=== PATIENT | male | born 1965 | race Caucasian/White ===

== ENCOUNTER 2019-01-20 20:23 | Inpatient (IN) | payer MEDICARE ==
[~2019-01-20] VITALS: Ht 162.6 cm; Wt 63.5 kg
[2019-01-20 20:20] VITALS: BP 115/61
[2019-01-20] MEDS ORDERED: TRAZ-214 (20:45)
[2019-01-20] MEDS ORDERED: IBUP-1955 (20:45)
[2019-01-20] MEDS ORDERED: BUPR100T7 (20:45)
[2019-01-20] MEDS ORDERED: NICO-676 (20:45)
[2019-01-20] MEDS ORDERED: GABA-534 (20:45)
[2019-01-20] MEDS ORDERED: OLAN15TA3 (20:45)
[2019-01-20] MEDS ORDERED: PARO30TA4 (20:45)
[2019-01-20] MEDS ORDERED: BLOOD SUGAR DIAGNOSTIC 1 EACH STRIP IN ONE (21:30)
[2019-01-20] MEDS ORDERED: MAGNESIUM HYDROXIDE 30 ML UDC PO PRN (21:30)
[2019-01-20] MEDS ORDERED: ACETAMINOPHEN 325 MG TABLET PO PRN (21:30)
[2019-01-20] MEDS ORDERED: MAG HYDROX/AL HYDROX/SIMETH 30 ML UDC PO PRN (21:30)
[2019-01-20] MEDS ORDERED: AMOX875T2 PO (21:44)
[2019-01-20] MEDS ORDERED: CEPH-570 PO (21:44)
[2019-01-20 23:09] VITALS: BP 115/66
--- NOTE | 2019-01-20 23:35 | NUR ---
ADMISSION NOTES: ADMITTED THIS 53Y/O MALE PATIENT DIRECT ADMIT FROM [facility] , PT ADMITTED ON VOLUNTARY STATUS ,THOUGHT OF HARMING HIMSELF , PLANS OF CUTTING HIS WRIST AT [facility] , UPON FACE TO FACE ASSESSMENT PATIENT IS A&O X ,4 CALM , COOPERATIVE, RESPONDING TO INTERNAL STIMULI ,DENIES SI HI AT THIS TIME , PER PT. I AM FEELING DEPRESSED, PT. IS POOR HISTORIAN, POOR INSIGHT ,POOR JUDGEMENT , POOR HYGINE ,PT. SIGNS VOLUNTARY ADMISSION PAPERS ,PT. REFUSED SKIN ASSESSMENT , PER PT. MY SKIN IS INTACT, AND REFUSED PICTURES, PT. REFUSED INTAILLY ACCU CHECK , PER PT. I AM NOT DIABETIC, PT. V/S MD ANIYAH AWARE AND NOTIFIED OF THE ADMISSION, BELONGINGS CONTRABAND WERE DONE , NURSING ASSESSMENT DONE ,PT. RIGHTS DISCUSS BY CARGO AND CONTAINER INSPECTOR , PROVIDE THE PT. WITH HANDBOOK, AND MEDICATIONS GUIDE, ENVIRONMENTAL SAFETY CHECK DONE, ENCOURAGED PT. VERBALIZED ANY FEELING CONCERN TO STAFF, ORIENT TO UNIT POLICY, NO ACUTE DISTRESS NOTED,VITAL SIGNS WNL ,DENIES ANY PAIN AT THIS TIME ,WILL CONTINUE TO MONITOR FOR Q15 SAFETY AND BEHAVIOR.
[2019-01-21] MEDS ORDERED: CEPHALEXIN MONOHYDRATE 250 MG CAPSULE PO SCH
[2019-01-21] MEDS ORDERED: CEPHALEXIN MONOHYDRATE 250 MG CAPSULE PO ONE
--- NOTE | 2019-01-21 06:50 | NUR ---
GPS RN NOTES: PT. NONE GIVEN NEXT OF KIN, PER PT.I LIVE BYMYSELF .
[2019-01-21 07:24] LABS: ALBUMIN 3.4 g/dL (3.4-5.0); BILIRUBIN,TOTAL 0.2 mg/dL (0.2-1.0); CALCIUM, SERUM 8.7 mg/dL (8.5-10.1); CREATININE 0.7 mg/dL (0.6-1.3); POTASSIUM 4.3 mmol/L (3.5-5.1); TOTAL PROTEIN, SERUM 6.8 g/dL (6.4-8.2)
[2019-01-21 08:00] VITALS: BP 109/65
[2019-01-21] MEDS: NICOTINE PATCH (21MG) 21 MG PATCH.TD24 TD SCH (08:48)
[2019-01-21] MEDS: AMOX/CLAVULANATE 875 MG TABLET PO SCH ×2 (08:48→20:39)
[2019-01-21] MEDS: CEPHALEXIN MONOHYDRATE 250 MG CAPSULE PO SCH ×2 (08:48→20:40)
[2019-01-21] MEDS ORDERED: TRAZODONE 50 MG TABLET PO PRN (10:00)
[2019-01-21] MEDS: clonazePAM 0.5 MG TABLET PO PRN ×2 (10:08→14:59)
[2019-01-21] MEDS: BUPROPION XL 150 MG TAB.ER.24 PO SCH (11:37)
[2019-01-21] MEDS: GABAPENTIN 300 MG CAPSULE PO SCH ×3 (11:37→16:37)
[2019-01-21] MEDS: PAROXETINE HCL 20 MG TABLET PO SCH (11:38)
--- NOTE | 2019-01-21 14:25 | NUR ---
Initial Discharge Plan: Pt is currently homeless and stated that he needs placement. SW will work with the MD and the pt regarding appropriate discharge planning. SW will form a safe and proper discharge.
--- NOTE | 2019-01-21 15:00 | NUR ---
GROUP NOTE: SW prompted pt to participate in group session on this present day discussing "current issues you are having while being on a hold." Pt refused to attend stating he wanted to sty in his room. Pt is withdrawn and isolating.
[2019-01-21 16:00] VITALS: BP 121/67
[2019-01-21 19:50] VITALS: BP 105/64
[2019-01-21] MEDS: OLANZAPINE 10 MG TABLET PO SCH (21:06)
[2019-01-22] MEDS: BUPROPION XL 150 MG TAB.ER.24 PO SCH (08:12)
[2019-01-22] MEDS: AMOX/CLAVULANATE 875 MG TABLET PO SCH ×2 (08:12→20:44)
[2019-01-22] MEDS: GABAPENTIN 300 MG CAPSULE PO SCH ×3 (08:12→16:10)
[2019-01-22] MEDS: CEPHALEXIN MONOHYDRATE 250 MG CAPSULE PO SCH ×2 (08:12→20:45)
[2019-01-22] MEDS: NICOTINE PATCH (21MG) 21 MG PATCH.TD24 TD SCH ×2 (08:12→09:00)
[2019-01-22] MEDS: PAROXETINE HCL 20 MG TABLET PO SCH (08:18)
[2019-01-22 09:14] VITALS: BP 98/53
[2019-01-22] MEDS: clonazePAM 0.5 MG TABLET PO PRN ×2 (09:55→14:55)
--- NOTE | 2019-01-22 10:24 | NUR ---
SW conducted a substance abuse intervention with the pt regarding his methamphetamine use.
[2019-01-22 16:00] VITALS: BP 113/67
[2019-01-22] MEDS: LACTOBACILLUS RHAMNOSUS GG 1 EACH CAP.SPRINK PO SCH (16:10)
--- NOTE | 2019-01-22 16:24 | NUR ---
Group Note: Pt was encouraged to participate in group therapy discussing the topic of discharge planning. Pt stated that he preferred to stay in his room and discuss discharge with his SW one on one.
[2019-01-22 20:20] VITALS: BP 100/60
[2019-01-22] MEDS: OLANZAPINE 10 MG TABLET PO SCH (21:27)
[2019-01-23 08:00] VITALS: BP 110/72
--- NOTE | 2019-01-23 09:13 | NUR ---
EMILY faxed a referral to [facility] with attention to Yuri to the fax number: [phone].
[2019-01-23] MEDS: PAROXETINE HCL 20 MG TABLET PO SCH (10:09)
[2019-01-23] MEDS: AMOX/CLAVULANATE 875 MG TABLET PO SCH ×2 (10:09→21:13)
[2019-01-23] MEDS: LACTOBACILLUS RHAMNOSUS GG 1 EACH CAP.SPRINK PO SCH ×2 (10:09→17:39)
[2019-01-23] MEDS: BUPROPION XL 150 MG TAB.ER.24 PO SCH (10:10)
[2019-01-23] MEDS: CEPHALEXIN MONOHYDRATE 250 MG CAPSULE PO SCH ×2 (10:10→21:13)
[2019-01-23] MEDS: NICOTINE PATCH (21MG) 21 MG PATCH.TD24 TD SCH (10:10)
[2019-01-23] MEDS: GABAPENTIN 300 MG CAPSULE PO SCH ×3 (10:10→17:39)
--- NOTE | 2019-01-23 10:50 | NUR ---
Randell ([phone]) from [facility] called the SW and informed her that the pt is not accepted to their facility due to his substance abuse and due to his ambulation meaning that there is no need for physical therapy.
[2019-01-23] MEDS: clonazePAM 0.5 MG TABLET PO PRN ×2 (10:59→15:36)
--- NOTE | 2019-01-23 11:00 | NUR ---
MEDICATED FOR NERVOUSNESS WITH CLONOPIN.
--- NOTE | 2019-01-23 15:44 | NUR ---
MEDICATED FOR NERVES WITH CLONOPIN.
[2019-01-23 16:02] VITALS: BP 110/73
--- NOTE | 2019-01-23 16:22 | NUR ---
GROUP NOTE: SW prompted pt to participate in group session on this present day discussing "medication compliance." Pt refused to attend stating he wanted to stay in his room.
--- NOTE | 2019-01-23 18:29 | NUR ---
GIVEN TYLENOL 650 MG FOR LT. ELBOW PAIN.
[2019-01-23 20:23] VITALS: BP 104/57
[2019-01-23] MEDS: OLANZAPINE 10 MG TABLET PO SCH (21:14)
[2019-01-24 08:00] VITALS: BP 107/62
[2019-01-24] MEDS: GABAPENTIN 300 MG CAPSULE PO SCH ×3 (08:00→16:14)
[2019-01-24] MEDS: CEPHALEXIN MONOHYDRATE 250 MG CAPSULE PO SCH ×2 (08:00→22:14)
[2019-01-24] MEDS: BUPROPION XL 150 MG TAB.ER.24 PO SCH (08:00)
[2019-01-24] MEDS: LACTOBACILLUS RHAMNOSUS GG 1 EACH CAP.SPRINK PO SCH ×2 (08:00→16:14)
[2019-01-24] MEDS: PAROXETINE HCL 20 MG TABLET PO SCH (08:00)
[2019-01-24] MEDS: AMOX/CLAVULANATE 875 MG TABLET PO SCH ×2 (08:01→22:14)
[2019-01-24] MEDS: NICOTINE PATCH (21MG) 21 MG PATCH.TD24 TD SCH (08:01)
[2019-01-24] MEDS: IBUPROFEN 600 MG TABLET PO PRN ×2 (09:09→16:14)
[2019-01-24] MEDS: clonazePAM 0.5 MG TABLET PO PRN ×3 (09:09→18:50)
--- NOTE | 2019-01-24 09:48 | NUR ---
EMILY faxed a referral to [facility] with attention to Padilla to the fax number: [phone].
--- NOTE | 2019-01-24 10:59 | NUR ---
Seble ([phone]) from [facility] called the SW and stated that the pt cannot be accepted due to his drug use and suicidal ideation.
--- NOTE | 2019-01-24 11:05 | NUR ---
EMILY faxed a referral to [facility] with attention to Amari to the fax number: [phone].
--- NOTE | 2019-01-24 13:03 | NUR ---
Juan ([phone]) from [facility] contacted the and stated that the pt was accepted to their facility.
--- NOTE | 2019-01-24 15:56 | NUR ---
Group Note: SW encouraged the pt to attend group and he stated that he was busy making some phone calls and could not make it at this time.
[2019-01-24 16:00] VITALS: BP 117/71
[2019-01-24 20:00] VITALS: BP 100/56
[2019-01-24] MEDS: OLANZAPINE 10 MG TABLET PO SCH (22:14)
[2019-01-24] MEDS: TEMAZEPAM 7.5 MG CAPSULE PO PRN ×2 (22:15→22:17)
[2019-01-25 08:00] VITALS: BP 107/61
[2019-01-25] MEDS: LACTOBACILLUS RHAMNOSUS GG 1 EACH CAP.SPRINK PO SCH ×2 (08:13→16:12)
[2019-01-25] MEDS: AMOX/CLAVULANATE 875 MG TABLET PO SCH ×2 (08:13→21:43)
[2019-01-25] MEDS: GABAPENTIN 300 MG CAPSULE PO SCH ×3 (08:13→16:12)
[2019-01-25] MEDS: CEPHALEXIN MONOHYDRATE 250 MG CAPSULE PO SCH ×2 (08:13→21:43)
[2019-01-25] MEDS: BUPROPION XL 150 MG TAB.ER.24 PO SCH (08:13)
[2019-01-25] MEDS: clonazePAM 0.5 MG TABLET PO PRN ×2 (08:27→13:30)
[2019-01-25] MEDS: IBUPROFEN 600 MG TABLET PO PRN ×2 (08:27→16:12)
[2019-01-25] MEDS: PAROXETINE HCL 20 MG TABLET PO SCH (08:27)
--- NOTE | 2019-01-25 08:28 | NUR ---
gps rn note: pt feeling anxious Clonazepam o.5 mg po prn given will continue monitoring
[2019-01-25] MEDS: NICOTINE PATCH (21MG) 21 MG PATCH.TD24 TD SCH (08:32)
--- NOTE | 2019-01-25 10:48 | NUR ---
EMILY faxed a clearance to [facility] with attention to Jessica to the fax number: [phone].
--- NOTE | 2019-01-25 13:30 | NUR ---
GPS RN NOTE: PT REQUESTING KLONOPIN FEELING ANXIOUS , KLONOPIN 0.5 MG PO PRN GIVEN PER ORDER WILL CONTINUE MONITORING.
--- NOTE | 2019-01-25 14:56 | NUR ---
Group Note: SW prompted the pt to participate in group therapy but pt stated he wanted to stay in his room due to feeling tired and wanting to sleep.
[2019-01-25 16:00] VITALS: BP 112/65
[2019-01-25 20:00] VITALS: BP 106/67
[2019-01-25] MEDS: TEMAZEPAM 7.5 MG CAPSULE PO PRN (21:43)
[2019-01-25] MEDS: OLANZAPINE 10 MG TABLET PO SCH (21:43)
[2019-01-26 08:00] VITALS: BP 119/71
[2019-01-26] MEDS: AMOX/CLAVULANATE 875 MG TABLET PO SCH (08:01)
[2019-01-26] MEDS: BUPROPION XL 150 MG TAB.ER.24 PO SCH (08:01)
[2019-01-26] MEDS: LACTOBACILLUS RHAMNOSUS GG 1 EACH CAP.SPRINK PO SCH (08:01)
[2019-01-26] MEDS: GABAPENTIN 300 MG CAPSULE PO SCH ×2 (08:02→12:18)
[2019-01-26] MEDS: PAROXETINE HCL 20 MG TABLET PO SCH (08:02)
[2019-01-26] MEDS: CEPHALEXIN MONOHYDRATE 250 MG CAPSULE PO SCH (08:02)
[2019-01-26] MEDS: NICOTINE PATCH (21MG) 21 MG PATCH.TD24 TD SCH (08:06)
[2019-01-26] MEDS: IBUPROFEN 600 MG TABLET PO PRN (08:10)
[2019-01-26] MEDS: clonazePAM 0.5 MG TABLET PO PRN (08:10)
--- NOTE | 2019-01-26 08:20 | NUR ---
DR. HERNANDEZ GAVE AN ORDER TO D/C PT. TO [facility], TO CONTINUE SAME MEDS INCLUDING PRN AND TO FOLLOW UP WITH PSYCH AND MEDICAL DOCTORS. CALLED THE FACILITY AND SPOKE TO MAXWELL AND AND SAID THEY ARE ACCEPTING PT. TODAY. PER. PT. HE DOESN'T HAVE ANY TO NOTIFY FOR HIS DISCHARGE.
--- NOTE | 2019-01-26 14:08 | NUR ---
PATIENT WAS DISCHARGED TODAY AT 1350 TO [facility] ([facility]) LOCATED AT [address] [place] [address] VIA AMBULANCE. PATIENT IS A&AX4, CALM, COOPERATIVE, PLEASANT, IN STABLE CONDITION. VSS. NO ACUTE DISTRESS NOTED. NO COMPLAINTS OF PAIN OR ANY DISCOMFORT. COMPLIANT WITH MEDICATION MANAGEMENT. COOPERATIVE WITH PLAN OF CARE. PSYCHIATRIC TREATMENT PLANS MET. MEDICAL TREATMENT PLANS DEFERRED FOR CONTINUAL MONITORING. DENIES SI/HI/AVH AT THE TIME OF DISCHARGE. PT REFUSED SKIN ASSESSMENT AND PHOTOS TO BE TAKEN AT DISCHARGE. EDUCATED PATIENT ABOUT AFTERCARE WITH COPY PROVIDED. RETURNED PERSONAL BELONGINGS TO PATIENT. MEDICATIONS RECONCILED WITH DR. HERNANDEZ AND DR. MIRELES ALONG WITH PSYCHIATRIC DISCHARGE ORDERS. DISCHARGE PAPERWORK SIGNED. FOR FOLLOW UP WITH PSYCHIATRIST AND DATA EXAMINATION CLERK AT WITHIN 1 WEEK. PATIENT LEFT THE [facility] AT 1350 VIA AMBULANCE. REPORT WAS GIVEN TO SAGAR ARREOLA AT AND PROGRESS NOTE WAS FAXED TO [phone].
--- NOTE | 2019-01-28 10:38 | NUR ---
Discharge Note: Pt was discharged to [facility] ([facility]) located at [address] [place] [address] ([phone]). Pt was transported via ambulance at 9AM. There was no one to contact about this discharge. Upon discharge, the pt appeared to be in a euthymic mood and presented with a calm affect. Per RN, the pt denied both suicidal and homicidal ideation as well as auditory and visual hallucinations. Pt was provided with homeless resources that included substance abuse referrals, homeless shelters, medical and psychiatric clinics, food pickens and places to shower. Pt will be under psychiatrist, Dr. Gruber, located at [address] [facility], [address], [place] [address]; and dry kiln feeder, Dr. Cates, located at [address] [place] [address]; . Addendum: 01/28/19 at 1100 by VANESSA DIAZ Pt was also provided with smoking cessation referrals such as [employer] or [employer] [id number]. Patient was also referred to the Nicotine Anonymous meeting on [address] [facility] [address] on Tuesday January 29, 2019 at 7:00 PM.
== END 2019-01-26 13:50 | DRG 885 ==
LOC: GPS 20:23
PROVIDERS: ADMIT Psychiatry & Neurology Psychiatry; ATTEND Nurse Practitioner Acute Care
DX: F31.5 Bipolar disorder, current episode depressed, severe, with psychotic features (principal); L03.114 Cellulitis of left upper limb; L03.113 Cellulitis of right upper limb; R45.851 Suicidal ideations; Z59.0 Homelessness; F29 Unspecified psychosis not due to a substance or known physiological condition; F17.210 Nicotine dependence, cigarettes, uncomplicated; F15.10 Other stimulant abuse, uncomplicated; S59.902A Unspecified injury of left elbow, initial encounter; X58.XXXA Exposure to other specified factors, initial encounter; Y92.89 Other specified places as the place of occurrence of the external cause
CPT/HCPCS: 36415; 80053-TC; 80061-TC; 87081-TC

== ENCOUNTER 2019-02-19 19:25 | Emergency (ER) | payer MEDICARE ==
[~2019-02-19] VITALS: Ht 162.6 cm; Wt 63.5 kg
[~2019-02-19 19:25] MED LIST: AMOX875T2 PO; BUPR100T7; CEPH-570 PO; GABA-534 PO; IBUP-1955 PO; NICO-676 TD; OLAN15TA3; PARO30TA4; TRAZ-214 PO
[2019-02-19 19:33] VITALS: BP 137/89
[2019-02-19] MEDS ORDERED: KETOROLAC TROMETHAMINE INJ 30 MG/ML VIAL IM ONE (20:00)
[2019-02-19] MEDS ORDERED: LORAZEPAM 1 MG TABLET PO ONE (20:00)
[2019-02-19] MEDS ORDERED: LORAZEPAM 1 MG TABLET ONE (20:29)
[2019-02-19] MEDS ORDERED: KETOROLAC TROMETHAMINE INJ 30 MG/ML VIAL ONE (20:29)
== END 2019-02-19 20:55 | disposition home or self-care (01) ==
LOC: ER 19:26
DX: F15.10 Other stimulant abuse, uncomplicated (principal); M25.512 Pain in left shoulder; R44.1 Visual hallucinations; F32.9 Major depressive disorder, single episode, unspecified; Z59.0 Homelessness; Z79.899 Other long term (current) drug therapy
CPT/HCPCS: 96372; 99283; J1885

== ENCOUNTER 2019-02-20 16:22 | Inpatient (IN) | payer MEDICARE ==
[~2019-02-20] VITALS: Ht 165.1 cm; Wt 65.8 kg
--- NOTE | 2019-02-20 17:52 | NUR ---
urine collected and sent to lab.
[2019-02-20 18:14] LABS: APPEARANCE,URINE Clear (CLEAR); BILIRUBIN,URINE Negative (NEGATIVE); BLOOD, URINE Trace-intact Ery/uL (NEGATIVE); COLOR,URINE Yellow (YELLOW); KETONES,URINE Negative (NEGATIVE); LEUKOCYTE ESTERASE ,URINE Negative (NEGATIVE); NITRITE, URINE Negative (NEGATIVE); PROTEIN,URINE Negative (NEGATIVE); UGLUCOSE Negative (NEGATIVE); UROBILINOGEN,URINE 0.2 EU/dL (0.2)
[2019-02-20 18:16] LABS: BASOPHILS # (AUTO) 0.1 /CMM (0.0-0.2); BASOPHILS % (AUTO) 0.6 % (0.0-2.0); EOSINOPHILS % (AUTO) 3.5 % (0.0-6.0); HEMATOCRIT 43 % (39-51); HEMOGLOBIN 14.8 g/dL (13.5-17.5); LYMPHOCYTES # (AUTO) 2.3 /CMM (0.8-4.8); LYMPHOCYTES % (AUTO) 23.8 % (20.0-44.0); MEAN CORPUSCULAR HGB CONC 34 g/dl (31.0-36.0); MEAN CORPUSCULAR VOLUME 89 fL (80-96); MONOCYTES # (AUTO) 0.9 /CMM (0.1-1.30); MONOCYTES % (AUTO) 9.2 % (2.0-12.0); NEUTROPHILS % (AUTO) 62.9 % (43.0-81.0); PLATELET COUNT (AUTO) 287 /CMM (150-450); RED BLOOD CELL COUNT(AUTO) 4.84 MIL/uL (4.5-6.0); WHITE BLOOD COUNT (AUTO) 9.5 K/uL (4.3-11.0)
[2019-02-20 18:27] LABS: CALCIUM, SERUM 8.7 mg/dL (8.5-10.1); CARBON DIOXIDE 28 mmol/L (21-32); CHLORIDE 102 mmol/L (98-107); CREATININE 0.9 mg/dL (0.6-1.3); GLUCOSE 95 mg/dL (74-106); POTASSIUM 3.5 mmol/L (3.5-5.1); SODIUM SERUM 138 mmol/L (136-145); UREA NITROGEN, BLOOD 14 mg/dL (7-18)
[2019-02-20 18:32] LABS: ALANINE AMINOTRANSFERASE 24 U/L (12-78); ALBUMIN 3.7 g/dL (3.4-5.0); ALCOHOL, BLOOD < 3 mg/dL (0-0); ALKALINE PHOSPHATASE 93 U/L (46-116); ASPARTATE AMINOTRANSFERASE 18 U/L (15-37); BILIRUBIN,DIRECT 0.1 mg/dL (0.0-0.2); BILIRUBIN,TOTAL 0.6 mg/dL (0.2-1.0); TOTAL PROTEIN, SERUM 7.1 g/dL (6.4-8.2)
[2019-02-20 18:33] LABS: ACETAMINOPHEN < 5 ug/ml (10-30); SALICYLATE 1.9 mg/dL (2.8-20.0)
[2019-02-20 18:47] LABS: RBC,URINE 2-3/HPF /HPF (0-2)
[2019-02-20 18:48] LABS: BACTERIA,URINE Rare /HPF (None Seen); MUCUS,URINE Few /LPF (None Seen); SQUAMOUS EPITHELIAL CELL,UR Rare /HPF (None Seen); WBC,URINE 0-2 /HPF (0-3)
[2019-02-20] MEDS ORDERED: OLANZAPINE 5 MG TABLET ONE (19:26)
[2019-02-20] MEDS ORDERED: LORAZEPAM 0.5 MG TABLET ONE (19:26)
--- NOTE | 2019-02-20 19:28 | NUR ---
+SI/-HI PT VERBALIZED "I WANT TO KILL MYSELF BY CUTTING MY WRIST". AAOX3, VSS. RR EVEN & UNLABORED. DENIES CP, SOB, DIZZINESS, N/V, WEAKNESS @ THIS TIME. CALM & COOPERATIVE. SEEN & EVAL'D BY YUMI SANCHEZ. MEDICATED ORDERED & WILL CONT TO MONITOR. CAPRI @ BS.
[2019-02-20] MEDS ORDERED: LORAZEPAM 1 MG TABLET PO ONE (19:30)
[2019-02-20] MEDS ORDERED: OLANZAPINE 5 MG TABLET PO ONE (19:30)
--- NOTE | 2019-02-20 19:42 | NUR ---
SPOKE TO FELIX REGARDING ER 6 TRANSFERED TO INTAKE
--- NOTE | 2019-02-20 21:40 | NUR ---
REPORT GIVEN TO SAGAR PHAM FOR KG
--- NOTE | 2019-02-20 22:00 | NUR ---
GPS ADMISSION NOTE, RECEIVED PATIENT FROM [facility]. PATIENT ARRIVED ON THIS UNIT AT 2200 VIA WHEELCHAIR WITH 1 CONSULTING SERVICES PROJECT MANAGER ESCORT. PATIENT ADMITTED ON A 5150 HOLD FOR DTS. PER HOLD PATIENT IS ALERT AND ORIENTED X 3. PATIENT STATED, " IM DEPRESSED AND HAVING SUICIDAL IDEATION TO CUT MY WRIST ". PATIENT IS NON-COMPLIANT WITH MEDICATIONS X 4-5 DAYS. PATIENT REPORTED HEARING VOICES TELLING HIM TO HURT HIMSELF, HAS A DEPRESSED MOOD, LOW ENERGY, AND HAS POOR MOTIVATION TO DO ANYTHING. PATIENT UNABLE TO CONTRACT FOR SAFETY AT THIS TIME. THE 5150 WAS REVIEWED AND THE DOCUMENTATION IN THE 5150 HOLD APPEARS TO REFLECT THE PRESENTATION OF THE PATIENT. UPON FACE TO FACE ASSESSMENT PATIENT IS NOTED TO BEING DISHEVELED, DISORGANIZED, DEPRESSED, COOPERATIVE, PARANOID, AND NEEDS REDIRECTION. PATIENT IS CURRENTLY LYING IN BED AWAKE, HAS NO S/S OR COMPLAINTS OF PAIN AT THIS TIME. PATIENT IS DISPLAYING NO S/S OF APPARENT DISTRESS. PATIENT BREATHING IS UNLABORED WITH EQUAL RISE AND FALL OF THE CHEST. PATIENT IS ALERT AND ORIENTATED X 3 ON ROOM AIR. PATIENT ASSISTED WITH TURING AND REPOSITIONING Q2HR AND PRN FOR COMFORT AND CIRCULATION. PATIENT HAS NO NEEDS AT THIS TIME. PATIENT DENIES HOMICIDAL IDEATIONS BUT HAS SUICIDE IDEATIONS WITH A PLAN TO CUT HIS WRIST AT THIS TIME. PATIENT SIGNED PAPER WORK. PATIENT ADVISED OF HIS HOLD AND PATIENT RIGHTS BOOKLET GIVEN. PATIENT IS UNDER THE PSYCHIATRIC CARE OF DR. SUAREZ AND THE MEDICAL CARE OF DR TIRADO. PATIENT BELONGINGS WERE INVENTORIED AND CHECKED FOR CONTRABAND. ALL CONTRABAND REMOVED AND STORED IN PATIENT HALLWAY LOCKER. PATIENT ADVANCED DIRECTIVES PREFERENCE, IMMUNIZATIONS QUESTIONER, NECESSARY PAPERWORK COMPLETED. PATIENT SKIN ASSESSMENT COMPLETED. PATIENT ORIENTATED TO ROOM, FLOOR, AND STAFF WITH ALL QUESTIONS ANSWERED. PATIENT EDUCATED ON THE USE OF THE CALL MACIAS. PATIENT BED SIDE RAILS ARE UP X 2 FOR SAFETY. PATIENT BED IS LOCKED, LOW AND I WILL CONTINUE TO MONITOR THIS PATIENT Q 15 MIN WITH THE HELP OF STAFF TO MAINTAIN SAFETY.
[2019-02-20] MEDS ORDERED: ACETAMINOPHEN 325 MG TABLET PO PRN (22:30)
[2019-02-20] MEDS ORDERED: ZOLPIDEM TARTRATE 5 MG TABLET PO PRN (22:30)
[2019-02-20] MEDS ORDERED: MAG HYDROX/AL HYDROX/SIMETH 30 ML UDC PO PRN (22:30)
[2019-02-20] MEDS ORDERED: MAGNESIUM HYDROXIDE 30 ML UDC PO PRN (22:30)
[2019-02-20] MEDS ORDERED: BLOOD SUGAR DIAGNOSTIC 1 EACH STRIP IN ONE (23:00)
--- NOTE | 2019-02-21 07:47 | NUR ---
PT. DENIED BEING SUICIDAL AT THIS TIME. PT. WILL DO CONTRACT TO BE SAFE WHILE IN THE HOSPITAL AND AGREED TO TAKE POSITIVE ACTIONS WHENEVER FEEL LIKE HURTING HIMSELF. IF DO DEVELOP SUICIDAL THOUGHTS WILL NOTIFY HOSPITAL STAFF IMMEDIATELY IN ORDER TO PREVENT SELF-HARM AND HE SIGNED. Addendum: 02/21/19 at 0752 by BOOM ROSA RN 1:1 CAPRI DISCONTINUED AND WILL CONTINUE TO MONITOR. Addendum: 02/21/19 at 1432 by BOOM ROSA RN DISCONTINUED TO 1:1
[2019-02-21 08:00] VITALS: BP 120/70
[2019-02-21] MEDS ORDERED: IBUPROFEN 600 MG TABLET PO PRN (10:30)
--- NOTE | 2019-02-21 12:09 | NUR ---
DR. SUAREZ GAVE AN ORDER TO TRANSFER SERVICE TO DR. HERNANDEZ AND DR. HERNANDEZ MADE AWARE.
[2019-02-21] MEDS: GABAPENTIN 300 MG CAPSULE PO SCH ×2 (14:21→17:03)
--- NOTE | 2019-02-21 15:33 | NUR ---
Group Note: Pt attended group therapy on 02/21/19 at 9:30pm discussing the topic of anger management for when they are in the hospital and for once they are discharged S: Pt stated, �I get angry but it�s not bad. It�s a natural emotion, everybody gets angry.� O: Pt was present during the group session and was engaged. Pt appeared alert and presented with a calm affect. Pt maintained appropriate eye contact and had a strong tone of voice. A: Pt expressed that when he gets angry he removes himself from the situation until he calms down. Pt believe this is the best thing for him to do in order to not get dysregulated. Pt will work on managing his anger by talking it out and staying calm when other people upset him. P: Pt will continue milieu treatment and medication stabilization.
[2019-02-21 16:00] VITALS: BP 115/76
--- NOTE | 2019-02-21 16:33 | NUR ---
Psychosocial Note: I, Yaahank Martinez PILLAR WORKER, attest to the patient�s previous psychosocial information dated on 01/21/19. Update On Events leading to Admission and Discharge Plan: Pt has returned to the hospital within one month of his previous discharge date (01/26/19). Per hold, the pt presented himself in the ER stating that he has suicidal ideation with a plan to cut his wrist. During the face to face assessment, the pt appeared to be alert and oriented x3. Pt stated, �I am depressed and having suicidal ideation to cut my wrist.� Pt has been non compliant with his medications for 4-5 days, reported hearing voices that were telling him to hurt himself, has low energy and motivation. Upon psychotherapist social worker evaluation, the pt appears to be alert and oriented x4 (time, place, self and situation). The pt appears to be in a depressed mood and presented as irritable and agitated. Pt appears to be ambulatory, disheveled and inappropriately dressed. Pt appears does not have an appropriate appetite and sleeping pattern. Pt appears to be ambulatory with a steady gait. Pt states that he is homeless and that he needs assistance with placement. SW will work with the pt and the MD regarding appropriate discharge planning. SW will form a safe and proper discharge.
[2019-02-21] MEDS ORDERED: AMOXICILLIN TRIHYDRATE PO SCH (17:00)
[2019-02-21] MEDS: buPROPion SR 150 MG TABLET.ER PO SCH (17:03)
[2019-02-21 20:49] VITALS: BP 103/60
[2019-02-21] MEDS: PAROXETINE HCL 20 MG TABLET PO SCH (21:57)
[2019-02-21] MEDS: OLANZAPINE 10 MG TABLET PO SCH (21:57)
[2019-02-22 03:43] VITALS: BP 103/60
[2019-02-22 06:24] LABS: BASOPHILS % (AUTO) 0.4 % (0.0-2.0); EOSINOPHILS % (AUTO) 3.4 % (0.0-6.0); HEMATOCRIT 44 % (39-51); HEMOGLOBIN 14.8 g/dL (13.5-17.5); LYMPHOCYTES # (AUTO) 2.1 /CMM (0.8-4.8); LYMPHOCYTES % (AUTO) 29.5 % (20.0-44.0); MEAN CORPUSCULAR HGB CONC 34 g/dl (31.0-36.0); MEAN CORPUSCULAR VOLUME 89 fL (80-96); MONOCYTES # (AUTO) 0.6 /CMM (0.1-1.30); NEUTROPHILS # (AUTO) 4.1 /CMM (1.8-8.9); NEUTROPHILS % (AUTO) 58.7 % (43.0-81.0); PLATELET COUNT (AUTO) 263 /CMM (150-450); RED BLOOD CELL COUNT(AUTO) 4.91 MIL/uL (4.5-6.0); WHITE BLOOD COUNT (AUTO) 7.1 K/uL (4.3-11.0)
[2019-02-22 06:43] LABS: CALCIUM, SERUM 8.4 mg/dL (8.5-10.1); CREATININE 0.7 mg/dL (0.6-1.3); POTASSIUM 3.6 mmol/L (3.5-5.1)
--- NOTE | 2019-02-22 07:13 | NUR ---
OPENING PT RESTING IM BED INTRODUCED TO PT BREATHING EVEN MOOD CALM WILL CONTINUE TO MONITOR
[2019-02-22 08:00] VITALS: BP 102/65
[2019-02-22] MEDS: GABAPENTIN 300 MG CAPSULE PO SCH ×3 (08:18→16:51)
[2019-02-22] MEDS: buPROPion SR 150 MG TABLET.ER PO SCH (08:18)
[2019-02-22] MEDS: NICOTINE PATCH (14MG) 14 MG PATCH.TD24 TD SCH ×3 (08:19→09:00)
--- NOTE | 2019-02-22 08:24 | NUR ---
PT REFUSED NICODERM PATCH PT WAS TOLD HE CANNOT GO OUTSIDE TO SMOKE PT CONTINUES TO REFUSE PATCH
[2019-02-22 16:00] VITALS: BP 94/59
--- NOTE | 2019-02-22 17:51 | NUR ---
CLOSING PT COOPERATIVE ALL DAY MOSTLY IN ROOM BED IN LOW POSITION KEPT SAFE ALL SHIFT PT COMPLIANT WITH MEDICATION PLAN. WILL GIVEN REPORT TO PM SHIFT FOR CONTINUITY OF CARE
[2019-02-22 18:01] VITALS: BP 102/65
--- NOTE | 2019-02-22 19:40 | NUR ---
PT IS AWAKE IN BED, NO C/O PAIN OR DISCOMFORT, PT HAS NO NEEDS AT THIS TIME, CONTINUE TO MONITOR AND MAINTAIN SAFETY.
[2019-02-22 20:59] VITALS: BP 114/65
[2019-02-22] MEDS: PAROXETINE HCL 20 MG TABLET PO SCH (21:08)
[2019-02-22] MEDS: OLANZAPINE 10 MG TABLET PO SCH (21:08)
--- NOTE | 2019-02-23 06:16 | NUR ---
CLOSING: PTS REMAINS STABLE, ALL PTS NEEDS ATTENDED, INDORSED TO MORNING SHIFT.
[2019-02-23 08:00] VITALS: BP 105/68
[2019-02-23] MEDS: NICOTINE PATCH (14MG) 14 MG PATCH.TD24 TD SCH (09:00)
[2019-02-23] MEDS: buPROPion SR 150 MG TABLET.ER PO SCH (09:02)
[2019-02-23] MEDS: GABAPENTIN 300 MG CAPSULE PO SCH ×3 (09:02→16:31)
[2019-02-23] MEDS: LORAZEPAM 1 MG TABLET PO PRN (10:50)
--- NOTE | 2019-02-23 10:52 | NUR ---
GPS/RN-NOTES PATIENT REQUESTING ATIVAN FOR ANXIETY. STATED" I NEED ATIVAN FOR MY ANXIETY".ATIVAN 1MG P.O GIVEN PRN ORDER. WILL CONT. MONITORING FOR SAFETY AND BEHAVIOR.
--- NOTE | 2019-02-23 12:00 | NUR ---
GPS/RN-NOTES PATIENT SLEEPING IN BED ,EASILY AROUSE,CALM NO ACUTE DISTRESS NOTED.
[2019-02-23 16:00] VITALS: BP 115/75
[2019-02-23 20:27] VITALS: BP 102/57
[2019-02-23] MEDS: PAROXETINE HCL 20 MG TABLET PO SCH (21:52)
[2019-02-23] MEDS: OLANZAPINE 10 MG TABLET PO SCH (21:53)
--- NOTE | 2019-02-24 07:30 | NUR ---
PT RECEIVED RESTING COMFORTABLY IN BED WITH EYES CLOSED. NO S/S OR C/O PAIN OR DISTRESS NOTED. SIDE RAILS UP X2, WILL CONTINUE PLAN OF CARE.
[2019-02-24 08:00] VITALS: BP 103/67
[2019-02-24] MEDS: NICOTINE PATCH (14MG) 14 MG PATCH.TD24 TD SCH (09:25)
[2019-02-24] MEDS: buPROPion SR 150 MG TABLET.ER PO SCH (09:25)
[2019-02-24] MEDS: GABAPENTIN 300 MG CAPSULE PO SCH ×3 (09:25→16:15)
[2019-02-24] MEDS: LORAZEPAM 1 MG TABLET PO PRN ×2 (09:25→17:47)
[2019-02-24 16:00] VITALS: BP_SYST 100; BP_SYST 105; BP_DIAS 59; BP_DIAS 62
[2019-02-24] MEDS: IBUPROFEN 600 MG TABLET PO PRN (18:33)
[2019-02-24 20:00] VITALS: BP 130/61
[2019-02-24 20:17] VITALS: BP 130/61
[2019-02-24] MEDS: PAROXETINE HCL 20 MG TABLET PO SCH ×2 (21:47→21:49)
[2019-02-24] MEDS: OLANZAPINE 10 MG TABLET PO SCH (21:47)
[2019-02-25 08:00] VITALS: BP 117/78
[2019-02-25] MEDS: buPROPion SR 150 MG TABLET.ER PO SCH (08:17)
[2019-02-25] MEDS: GABAPENTIN 300 MG CAPSULE PO SCH ×3 (08:17→17:33)
[2019-02-25] MEDS: NICOTINE PATCH (14MG) 14 MG PATCH.TD24 TD SCH ×2 (08:39→08:49)
[2019-02-25] MEDS: IBUPROFEN 600 MG TABLET PO PRN (09:35)
[2019-02-25] MEDS: LORAZEPAM 1 MG TABLET PO PRN ×3 (09:35→21:13)
--- NOTE | 2019-02-25 09:38 | NUR ---
GPS RN NOTE: PT C/O LEFT SHOULDER PAIN 10/12 MOTRIN GIVEN PER ORDER PT REQUESTING ATIVAN FOR ANXIETY, PRN ATIVAN 0.5 MG PO GIVEN WILL CONTINUE MONITORING FOR SAFETY AND BEHAVIOR Q 15 MIN. Addendum: 02/25/19 at 0944 by DEVANG BENTLEY RN ATIVAN 1 MG PO PRN GIVEN
--- NOTE | 2019-02-25 14:52 | NUR ---
Group Note: SW encouraged pt to attend group therapy on 02/25/19 at 1:30pm discussing support systems when they are in the hospital and for once they are discharged but the pt was unable to attend. Pt is sleeping and is not easily aroused.
[2019-02-25 16:00] VITALS: BP 113/64
--- NOTE | 2019-02-25 17:45 | NUR ---
GPS RN NOTE: PT REQUESTING ATIVAN FOR ANXIETY, PRN ATIVAN 1 MG PO GIVEN WILL CONTINUE MONITORING FOR SAFETY AND BEHAVIOR Q 15 MIN.
[2019-02-25 19:43] VITALS: BP 113/69
[2019-02-25] MEDS: TRAZODONE 50 MG TABLET PO PRN (21:13)
[2019-02-25] MEDS: OLANZAPINE 10 MG TABLET PO SCH (21:13)
[2019-02-25] MEDS: PAROXETINE HCL 20 MG TABLET PO SCH (21:28)
--- NOTE | 2019-02-26 02:45 | NUR ---
RN NOTES Patient claimed she has bruises caused by BASEBALL WINDER who changed her diaper. Assessed the patient's BUE, no new skin issues/bruises identified. Photo taken and documented. Patient wanted to walk to the bathroom to pee but wanted the nurse to pull him out of the bed. Informed the patient it is not safe for 1 nurse to pull her out of bed, instead the nurse guided the patient in moving out of bed to bathroom safely. Assisted patient back to bed comfortably. Informed the patient she is positioned diagonal to the bed and in one side. Instructed patient to move on the bed centered. Patient claimed she can not pull her self up on bed. Provided instructions and guide the patient how to move on bed to be centered safely. Patient got upset because according to the patient the nurse is not helping her. Patient was able to position herself center on bed and comfortably. Adjusted HOB to patient's comfortable position. Siderails up, positioned bed to the lowest possible, bed alarm on. In a few moment patient was noted at the room's door standing without the walker. Calmly instructed the patient to walk back to get the walker. Patient yelled on the nurse to pick her walker up. The nurse informed the patient she cannot be left alone for safety. Assisted the patient to walk back to get the walker. Patient then walked independently to see the charge nurse and started crying. CN attentive listened to the patient, assisted her back on bed. Primary nurse then offered help to the patient. Patient was resistant at first but then eventually accepted the help offered. Patient was given Clonazepam as ordered. Patient felt uncomfortable on bed. Offered to transfer to another bed. Patient then able to position herself on bed #2 assisted by the primary nurse. Patient claimed she felt better on this bed. Patient is now asleep. Will continue to monitor accordingly.
[2019-02-26 08:00] VITALS: BP 100/63
[2019-02-26] MEDS: NICOTINE PATCH (14MG) 14 MG PATCH.TD24 TD SCH ×2 (09:00→09:24)
[2019-02-26] MEDS: GABAPENTIN 300 MG CAPSULE PO SCH ×3 (09:23→17:49)
[2019-02-26] MEDS: buPROPion SR 150 MG TABLET.ER PO SCH (09:23)
[2019-02-26] MEDS: LORAZEPAM 1 MG TABLET PO PRN ×2 (09:23→17:55)
--- NOTE | 2019-02-26 09:23 | NUR ---
GIVEN ATIVAN FOR NERVES.
--- NOTE | 2019-02-26 11:16 | NUR ---
Substance Abuse Intervention: SW conducted a substance abuse intervention with the pt due to his cannabis use.
--- NOTE | 2019-02-26 11:33 | NUR ---
EMILY called the pts mother, Netta ([phone]), once the pt provided the SW with permission to contact. EMILY left a voicemail stating that she can contact the SW for updates regarding discharge planning.
--- NOTE | 2019-02-26 11:44 | NUR ---
Individual Intervention: SW discussed discharge planning with the pt. The pt stated that he would like to be placed in the same facility as his roommate which is called [facility]. SW stated that she would send out the referral.
--- NOTE | 2019-02-26 11:46 | NUR ---
SNF Referral: EMILY faxed a referral to [facility] with attention to AYSHA and Juan to the fax number: [phone].
--- NOTE | 2019-02-26 12:27 | NUR ---
AYSHA ([phone]) from [facility] contacted the and stated that the pt was accepted to their facility.
[2019-02-26 15:50] VITALS: BP 142/74
[2019-02-26] MEDS: IBUPROFEN 600 MG TABLET PO PRN (16:38)
--- NOTE | 2019-02-26 16:38 | NUR ---
MEDICATED FOR PAIN IN LT. SHOULDER.
--- NOTE | 2019-02-26 17:56 | NUR ---
GIVEN ATIVAN FOR AGITATION.
[2019-02-26 20:16] VITALS: BP 93/55
[2019-02-26] MEDS: OLANZAPINE 10 MG TABLET PO SCH (21:08)
[2019-02-26] MEDS: PAROXETINE HCL 20 MG TABLET PO SCH (21:08)
[2019-02-26] MEDS: TRAZODONE 50 MG TABLET PO PRN (21:32)
[2019-02-27 08:00] VITALS: BP 118/69
[2019-02-27] MEDS: NICOTINE PATCH (14MG) 14 MG PATCH.TD24 TD SCH (09:00)
[2019-02-27] MEDS: buPROPion SR 150 MG TABLET.ER PO SCH (09:54)
[2019-02-27] MEDS: LORAZEPAM 1 MG TABLET PO PRN ×2 (09:54→18:12)
[2019-02-27] MEDS: GABAPENTIN 300 MG CAPSULE PO SCH ×3 (09:54→18:12)
--- NOTE | 2019-02-27 09:55 | NUR ---
MEDICATED FOR NERVES WITH ATIVAN.
--- NOTE | 2019-02-27 11:55 | NUR ---
PC Hearing Notification: SW called the pts mother, Netta ([phone]), and left her a voicemail that stated that the pt has a hearing today and explained all of the possible results of the hearing. Pt informed her that if the pt is discharged today then he was accepted to a facility called [facility] and he will be discharged there.
[2019-02-27] MEDS: IBUPROFEN 600 MG TABLET PO PRN (12:48)
--- NOTE | 2019-02-27 12:51 | NUR ---
GIVEN MOTRIN FOR LT. SHOULDER PAIN.
--- NOTE | 2019-02-27 15:09 | NUR ---
EMILY called the pts mother, Netta ([phone]), and informed her that the pt is in the hospital and that he will be discharged around Monday to [facility] as his choice of a facility. She stated that she was concerned because she did not know where he was and that he usually calls her about once a week. She stated that she would like to be notified when the pt is discharged.
[2019-02-27 16:00] VITALS: BP 111/63
--- NOTE | 2019-02-27 16:04 | NUR ---
GROUP NOTE: SW encouraged pt to attend group therapy on this present day discussing "discharge planning." Pt refused to attend saying he did not want to participate today and that maybe tomorrow he would.
--- NOTE | 2019-02-27 18:18 | NUR ---
just medicated with ativan for nerves.
[2019-02-27 19:59] VITALS: BP 107/67
[2019-02-27] MEDS: PAROXETINE HCL 20 MG TABLET PO SCH (21:11)
[2019-02-27] MEDS: OLANZAPINE 10 MG TABLET PO SCH (21:11)
[2019-02-27] MEDS: TRAZODONE 50 MG TABLET PO PRN (21:34)
[2019-02-28 08:00] VITALS: BP 100/67
[2019-02-28] MEDS: NICOTINE PATCH (14MG) 14 MG PATCH.TD24 TD SCH (08:39)
[2019-02-28] MEDS: GABAPENTIN 300 MG CAPSULE PO SCH ×3 (08:39→17:00)
[2019-02-28] MEDS: buPROPion SR 150 MG TABLET.ER PO SCH (08:39)
[2019-02-28] MEDS: LORAZEPAM 1 MG TABLET PO PRN ×2 (08:46→17:00)
--- NOTE | 2019-02-28 08:47 | NUR ---
RN NOTE: PATIENT C/O FEELING ANXIOUS. ADMINISTERED PRN ATIVAN 1MG PO.
[2019-02-28] MEDS: IBUPROFEN 600 MG TABLET PO PRN (13:31)
--- NOTE | 2019-02-28 13:32 | NUR ---
RN NOTE: PATIENT C/O PAIN 6/10 TO LEFT SHOULDER. ADMINISTERED IBUPROFEN 600 MG TAB PO.
--- NOTE | 2019-02-28 14:41 | NUR ---
Group Note 02/28/19 Goal: Patient will attend group held today from 2-2:30pm in the activities room and participate and/or actively listen to peers and be respectful. Intervention: SW facilitated group session with patients regarding Mindfulness. SW current relaxation techniques and educated pt. about mindfulness how to practice it and its purpose. SW facilitated mindfulness breathing exercise. Response: Patient was agreeable to participating in group session. Patient was alert and oriented and remained calm and cooperative throughout session. Patient made appropriate eye contact throughout group session. Resident breathing as a technique he already uses to relax. Resident expressed understanding what mindfulness is about and feeling confident in ability to practice it independently. Plan: Patient will be invited to attend next mental health social worker group session held.
[2019-02-28 16:00] VITALS: BP 112/70
--- NOTE | 2019-02-28 17:01 | NUR ---
RN NOTES: PATIENT C/O FEELING ANXIOUS. ADMINISTERED ATIVAN.
[2019-02-28 20:28] VITALS: BP 115/67
[2019-02-28] MEDS: OLANZAPINE 10 MG TABLET PO SCH (21:16)
[2019-02-28] MEDS: PAROXETINE HCL 20 MG TABLET PO SCH (21:16)
[2019-03-01 08:00] VITALS: BP 99/59
[2019-03-01] MEDS: NICOTINE PATCH (14MG) 14 MG PATCH.TD24 TD SCH (08:24)
[2019-03-01] MEDS: GABAPENTIN 300 MG CAPSULE PO SCH ×2 (08:25→12:18)
[2019-03-01] MEDS ORDERED: buPROPion SR 150 MG TABLET.ER PO SCH (09:00)
--- NOTE | 2019-03-01 09:13 | NUR ---
DR. HERNANDEZ GAVE AN ORDER TO D/C HOLD AND D/C TO [facility], TO CONTINUE SAME MEDS INCLUDING PRN AND TO FOLLOW UP WITH PSYCH AND MEDICAL DOCTORS.
[2019-03-01] MEDS: LORAZEPAM 1 MG TABLET PO PRN (09:24)
--- NOTE | 2019-03-01 09:25 | NUR ---
RN NOTE: PATIENT C/O FEELING ANXIOUS. ADMINISTERED PRN ATIVAN 1MG TAB PO.
--- NOTE | 2019-03-01 10:25 | NUR ---
PATIENT IN ACTIVITY ROOM, WATCHING TV. DENIES ANY FEELINGS OF ANXIOUSNESS AT THIS TIME. WILL CONTINUE TO MONITOR.
--- NOTE | 2019-03-01 14:30 | NUR ---
GPS/RN-NOTES PATIENT WAS DISCHARGE TO [facility] TODAY. DR. HERNANDEZ AND GUILLERMO LIU AWARE AND AGREED OF PATIENT DISCHARGE.PATIENT LEFT THE UNIT IN STABLE CONDITION ALERT ORIENTED X3 AMBULATORY STEADY GAIT. PATIENT DID NOT VERBALIZED SI/HI ,DENIES VISUAL/AUDITORY HALLUCINATIONS AT THE TIME OF DISCHARGE.REPORT WAS GIVEN TO ANGELO( HOTEL STAFF MEMBER).PATIENT WAS PICK BY AMBULANCE VIA GURNEY WITH TWO STAFF ASSIST. PATIENT LEFT THE UNIT WITH ALL BELONGINGS .
--- NOTE | 2019-03-01 15:12 | NUR ---
Discharge Note: Pt was discharged to [facility] ([facility]) located at [address] [place] [id number]; ([phone]). Pt was transported via [facility] at 2PM. Pt�s mother, Netta ([phone]), was informed of the discharge. Upon discharge, the pt appeared to be in a euthymic mood and presented with a calm affect. Pt denied both suicidal and homicidal ideation as well as auditory and visual hallucinations. Pt was provided with homeless and substance abuse resources. Pt will be under the care of his psychiatrist, Dr. Minor, located at [address] [facility] [address] [facility] [address] [facility], [address] [place] [address]; and his shipper/receiver, Dr. Cates, located at [address] [place] [address]; . Pt will continue to address his substance abuse with his treatment team.
== END 2019-03-01 14:30 | DRG 885 ==
LOC: ER 16:22 → GPS 21:24
PROVIDERS: ADMIT Psychiatry & Neurology Psychiatry; ATTEND Internal Medicine
DX: F31.64 Bipolar disorder, current episode mixed, severe, with psychotic features (principal); R45.851 Suicidal ideations; F19.20 Other psychoactive substance dependence, uncomplicated; F17.210 Nicotine dependence, cigarettes, uncomplicated; Z73.6 Limitation of activities due to disability; E78.5 Hyperlipidemia, unspecified; F10.21 Alcohol dependence, in remission
CPT/HCPCS: 36415; 80048-TC; 80061-TC; 80076-TC; 80305; 81000-TC; 85025-TC; 87081-TC; G0480

== ENCOUNTER 2020-03-10 21:02 | Emergency (ER) | payer OTHER ==
[~2020-03-10] VITALS: Ht 165.1 cm; Wt 65.8 kg
[~2020-03-10 21:02] MED LIST changes: -TRAZ-214 PO; +TRAZ-257 PO
--- NOTE | 2020-03-10 21:20 | NUR ---
PT AAOX4. AMBULATORY WITH STEADY GAIT. BIBSELF C/O SI TO "CUT WRIST" -HI. PT WOULD LIKE TO BE PLACED IN A [facility]. PT PROVIDED URINE SAMPLE. PT WAS PLACED IN BED 15 ON MONITOR AND PULSE OX. BELONININGS PLACED IN LOCKER. SITTER AT BEDSIDE.
--- NOTE | 2020-03-10 21:28 | NUR ---
PHLEBOTOMUIST AT [facility]
--- NOTE | 2020-03-10 21:28 | NUR ---
COVID SWABBED, SENT TO LAB
[2020-03-10 22:14] LABS: BASOPHILS % (AUTO) 0.2 % (0.0-2.0); EOSINOPHILS % (AUTO) 0.1 % (0.0-6.0); HEMATOCRIT 39 % (39-51); HEMOGLOBIN 12.9 g/dL (13.5-17.5); LYMPHOCYTES # (AUTO) 0.7 /CMM (0.8-4.8); LYMPHOCYTES % (AUTO) 4.9 % (20.0-44.0); MEAN CORPUSCULAR HGB CONC 33 g/dl (31.0-36.0); MEAN CORPUSCULAR VOLUME 88 fL (80-96); MONOCYTES # (AUTO) 0.7 /CMM (0.1-1.30); MONOCYTES % (AUTO) 4.6 % (2.0-12.0); NEUTROPHILS # (AUTO) 13.6 /CMM (1.8-8.9); NEUTROPHILS % (AUTO) 90.2 % (43.0-81.0); PLATELET COUNT (AUTO) 283 /CMM (150-450); RED BLOOD CELL COUNT(AUTO) 4.41 MIL/uL (4.5-6.0); WHITE BLOOD COUNT (AUTO) 15.1 K/uL (4.3-11.0)
[2020-03-10 22:26] LABS: APPEARANCE,URINE SL CLOUDY (CLEAR); BILIRUBIN,URINE NEGATIVE (NEGATIVE); BLOOD, URINE NEGATIVE Ery/uL (NEGATIVE); COLOR,URINE YELLOW (YELLOW); KETONES,URINE >=80 (NEGATIVE); LEUKOCYTE ESTERASE ,URINE NEGATIVE (NEGATIVE); NITRITE, URINE NEGATIVE (NEGATIVE); PH,URINE 5.5 (5.0-8.0); PROTEIN,URINE NEGATIVE (NEGATIVE); UGLUCOSE NEGATIVE (NEGATIVE); UROBILINOGEN,URINE 0.2 EU/dL (0.2)
[2020-03-10 22:31] LABS: CALCIUM, SERUM 8.6 mg/dL (8.5-10.1); CARBON DIOXIDE 22 mmol/L (21-32); CHLORIDE 96 mmol/L (98-107); CREATININE 1.1 mg/dL (0.6-1.3); GLUCOSE 120 mg/dL (74-106); POTASSIUM 3.5 mmol/L (3.5-5.1); SODIUM SERUM 133 mmol/L (136-145); UREA NITROGEN, BLOOD 28 mg/dL (7-18)
[2020-03-10 22:39] LABS: ALANINE AMINOTRANSFERASE 28 U/L (12-78); ALBUMIN 4.2 g/dL (3.4-5.0); ALCOHOL, BLOOD < 3 mg/dL (0-0); ALKALINE PHOSPHATASE 90 U/L (46-116); ASPARTATE AMINOTRANSFERASE 31 U/L (15-37); BILIRUBIN,DIRECT 0.1 mg/dL (0.0-0.2); BILIRUBIN,TOTAL 0.6 mg/dL (0.2-1.0); TOTAL PROTEIN, SERUM 7.4 g/dL (6.4-8.2)
[2020-03-10 22:40] LABS: ACETAMINOPHEN < 2 ug/ml (10-30); SALICYLATE 1.7 mg/dL (2.8-20.0)
--- NOTE | 2020-03-10 23:37 | NUR ---
PT ASLEEP, VSS.
--- NOTE | 2020-03-11 00:31 | NUR ---
CLINICAL FAXED TO [facility] FOR VOLUNTARY ADMISSION.
--- NOTE | 2020-03-11 02:26 | NUR ---
PT ACCEPTED AT [facility]. ACCEPTING MD VALLE PT WILL GO TO UNIT 2 PHONE # FOR REPORT
--- NOTE | 2020-03-11 02:34 | NUR ---
SPOKE WITH GUSTAVO MELENDEZ [address] [facility]
--- NOTE | 2020-03-11 02:44 | NUR ---
REPORT GIVEN TO RICKY KEITH FOR KG
[2020-03-11 03:48] VITALS: BP 117/62
--- NOTE | 2020-03-11 03:49 | NUR ---
Report given to ZAIN. Pt transfered to [facility].
== END 2020-03-11 03:50 ==
LOC: ER 21:07
DX: R45.851 Suicidal ideations (principal); F20.9 Schizophrenia, unspecified; F31.9 Bipolar disorder, unspecified; Z79.899 Other long term (current) drug therapy; Z20.828 Contact with and (suspected) exposure to other viral communicable diseases
CPT/HCPCS: 36415; 80048; 80076; 80305; 80307; 80329; 81001; 85025; 87426; 99285; C9803; G0480; 81000-TC

== ENCOUNTER 2020-08-27 13:50 | Inpatient (IN) | payer MEDICARE, OTHER ==
[~2020-08-27] VITALS: Ht 162.6 cm; Wt 65.8 kg
[2020-08-27 14:11] VITALS: BP 119/73
[2020-08-27] MEDS ORDERED: LORA-259 PO (14:17)
[2020-08-27] MEDS ORDERED: BUPR-96 PO (14:17)
[2020-08-27] MEDS ORDERED: RESTORIL (14:17)
[2020-08-27] MEDS ORDERED: QUET200T PO (14:17)
[2020-08-27] MEDS ORDERED: BLOOD SUGAR DIAGNOSTIC 1 EACH STRIP IN ONE (14:30)
[2020-08-27] MEDS ORDERED: MAG HYDROX/AL HYDROX/SIMETH 30 ML UDC PO PRN (14:30)
[2020-08-27] MEDS ORDERED: MAGNESIUM HYDROXIDE 30 ML UDC PO PRN (14:30)
--- NOTE | 2020-08-27 14:30 | NUR ---
GPS/RN-ADMISSION NOTES ADMITTED A 55 YEARS OLD MALE PATIENT FROM [facility].PATIENT ON 5150 HOLD FOR SUICIDAL IDEATION WITH PLAN TO CUT WRIST.UPON FACE TO FACE INTERVIEW PATIENT ALERT ORIENTED X4 AMBULATORY WITH STEADY GAIT. PATIENT DENIES SI/HI AT THIS TIME. FULL BODY ASSESSMENT AND CONTRABAND DONE.ALL ADMISSION PAPERS WAS SIGN BY THE PATIENT. PATIENT WAS ORIENTED IN THE UNIT AND UNIT POLICIES. NO FAMILY TO NOTIFY ON THE ADMISSION. PATIENT'S RIGHT BOOKLET WAS GIVEN TO THE PATIENT. MRSA SWAB DONE AND SENT TO THE LAB.DR. HERNANDEZ( PSYCHIATRIST) AND DR. MORALEZ( ARTIFICIAL LEATHER CALENDER OPERATOR MADE AWARE OF THE ADMISSION. WILL ENDORSE TO INCOMING SHIFT FOR CONTINUITY OF CARE.
[2020-08-27 16:00] VITALS: BP 117/79
[2020-08-27] MEDS: clonazePAM 0.5 MG TABLET PO PRN ×2 (16:21→20:55)
--- NOTE | 2020-08-27 16:26 | NUR ---
GPS/RN-NOTES PATIENT REQUESTING FOR KLONOPIN. STATED" I'M ANXIOUS I NEED MY KLONOPIN" KLONOPIN 0.5MG P.O GIVEN PRN. WILL CONT. MONITORING FOR SAFETY AND BEHAVIOR.
--- NOTE | 2020-08-27 17:30 | NUR ---
GPS/RN-NOTES PATIENT LAYING IN BED AWAKE,ALERT CALM NO ACUTE DISTRESS NOTED.
[2020-08-27] MEDS: GABAPENTIN 300 MG CAPSULE PO SCH (18:01)
[2020-08-27] MEDS: BUPROPION XL 150 MG TAB.ER.24 PO SCH (18:02)
--- NOTE | 2020-08-27 19:30 | NUR ---
GPS RN NOTE, RECEIVED PATIENT AWAKE AND IN BED, NO S/S OR COMPLAINTS OF PAIN AT THIS TIME. PATIENT IS DISPLAYING NO S/S OF APPARENT DISTRESS AT THIS TIME. PATIENT BREATHING IS UNLABORED WITH EQUAL RISE AND FALL OF THE CHEST. PATIENT IS ALERT AND ORIENTED X 3 - 4 ON ROOM AIR WITH A SPO2 98%. PATIENT IS COMPLIANT WITH MEDICATIONS, DEPRESSED, ANXIOUS AT TIMES, AND COOPERATIVE. PATIENT DENIES SUICIDAL AND HOMICIDAL IDEATIONS AT THIS TIME. PATIENT ASSISTED WITH TURNING AND REPOSITIONING Q2HR AND PRN FOR COMFORT AND CIRCULATION. PATIENT HAS NO NEEDS AT THIS TIME. PATIENT EDUCATED ON THE USE OF THE CALL MACIAS. PATIENT BED SIDE RAILS UP X 2 FOR SAFETY. PATIENT BED IS LOCKED, LOW, WITH BED ALARM ON. WILL CONTINUE TO MONITOR THIS PATIENT Q15 MINUTES WITH THE HELP OF STAFF TO MAINTAIN SAFETY.
[2020-08-27 19:49] VITALS: BP 106/57
--- NOTE | 2020-08-27 20:55 | NUR ---
GPS RN NOTE, PATIENT HAS A COMPLAINT OF FEELING ANXIOUS AND IS REQUESTING KLONOPIN AT THIS TIME. PATIENT VITAL SIGNS ARE STABLE. GAVE KLONOPIN 0.5MG PO Q4HR PRN ORDERED. WILL REASSESS FOR ANXIETY AND I WILL CONTINUE TO MONITOR THIS PATIENT.
[2020-08-27] MEDS: QUETIAPINE FUMARATE 100 MG TABLET PO SCH (21:45)
[2020-08-28 07:22] LABS: CALCIUM, SERUM 8.8 mg/dL (8.5-10.1); CREATININE 0.9 mg/dL (0.6-1.3); POTASSIUM 4.8 mmol/L (3.5-5.1)
[2020-08-28 08:00] VITALS: BP 103/59
[2020-08-28] MEDS: GABAPENTIN 300 MG CAPSULE PO SCH ×3 (08:37→16:44)
[2020-08-28] MEDS: BUPROPION XL 150 MG TAB.ER.24 PO SCH ×2 (08:37→16:44)
[2020-08-28 08:45] LABS: ALBUMIN 3.3 g/dL (3.4-5.0); BILIRUBIN,TOTAL 0.2 mg/dL (0.2-1.0); TOTAL PROTEIN, SERUM 6.8 g/dL (6.4-8.2)
[2020-08-28] MEDS: clonazePAM 0.5 MG TABLET PO PRN ×2 (08:48→13:12)
[2020-08-28 08:54] LABS: CHOLESTEROL 170 mg/dL (<200); HDL CHOLESTEROL 55 mg/dL (40-60); LDL 99 mg/dL (0-99); TRIGLYCERIDES 57 mg/dL (30-150)
[2020-08-28] MEDS: NICOTINE PATCH (7MG) 7 MG PATCH.TD24 TD SCH (11:06)
--- NOTE | 2020-08-28 11:55 | NUR ---
Substance Abuse Intervention: SW conducted a substance abuse intervention with the pt due to amphetamine use.
[2020-08-28] MEDS: ACETAMINOPHEN 325 MG TABLET PO PRN (13:19)
--- NOTE | 2020-08-28 15:45 | NUR ---
Family Contact: SW spoke with the pts mother, Netta ([phone]), who stated that she does not have contact with the pt but would like to know where he is going.
[2020-08-28 16:00] VITALS: BP 113/59
--- NOTE | 2020-08-28 16:01 | NUR ---
Initial Discharge Plan: Pt is currently homeless and pt states that he would like to be given placement. SW will work with the pt and the MD regarding appropriate discharge planning. SW will form a safe and proper discharge.
[2020-08-28] MEDS: LORAZEPAM 1 MG TABLET PO PRN (18:30)
[2020-08-28 20:20] VITALS: BP 117/74
[2020-08-28] MEDS: QUETIAPINE FUMARATE 100 MG TABLET PO SCH (21:06)
[2020-08-28] MEDS: TEMAZEPAM 7.5 MG CAPSULE PO PRN (22:07)
--- NOTE | 2020-08-28 22:09 | NUR ---
RN NOTES: INSOMNIA : PT. C/O UNABLE TO SLEEP, RESTORIL 15 MG PO PRN GIVEN PER PT.REQUEST, WILL CONTINUE TO MONITOR.
--- NOTE | 2020-08-28 22:54 | NUR ---
GPS RN NOTE, RECEIVED PATIENT AWAKE AND IN BED, NO S/S OR COMPLAINTS OF PAIN AT THIS TIME. PATIENT IS DISPLAYING NO S/S OF APPARENT DISTRESS AT THIS TIME. PATIENT BREATHING IS UNLABORED WITH EQUAL RISE AND FALL OF THE CHEST. PATIENT IS ALERT AND ORIENTED X 3 - 4 ON ROOM AIR WITH A SPO2 98%. PATIENT IS COMPLIANT WITH MEDICATIONS, DEPRESSED, UNPREDICTABLE, ANXIOUS AT TIMES, RESPONDING TO INTERNAL STIMULI, AND COOPERATIVE. PATIENT DENIES SUICIDAL AND HOMICIDAL IDEATIONS AT THIS TIME. PATIENT ASSISTED WITH TURNING AND REPOSITIONING Q2HR AND PRN FOR COMFORT AND CIRCULATION. PATIENT HAS NO NEEDS AT THIS TIME. PATIENT EDUCATED ON THE USE OF THE CALL MACIAS. PATIENT BED SIDE RAILS UP X 2 FOR SAFETY. PATIENT BED IS LOCKED, LOW, WITH BED ALARM ON. WILL CONTINUE TO MONITOR THIS PATIENT Q15 MINUTES WITH THE HELP OF STAFF TO MAINTAIN SAFETY.
--- NOTE | 2020-08-29 04:30 | NUR ---
GPS RN NOTE, PATIENT HAS A COMPLAINT OF FEELING ANXIOUS AND IS REQUESTING ATIVAN AT THIS TIME. PATIENT VITAL SIGNS ARE STABLE. GAVE ATIVAN 1 MG PO Q8HR PRN ORDERED. WILL REASSESS FOR ANXIETY AND I WILL CONTINUE TO MONITOR THIS PATIENT.
[2020-08-29] MEDS: LORAZEPAM 1 MG TABLET PO PRN ×2 (04:31→11:09)
[2020-08-29 08:00] VITALS: BP 99/59
[2020-08-29] MEDS: GABAPENTIN 300 MG CAPSULE PO SCH ×3 (08:57→16:50)
[2020-08-29] MEDS: NICOTINE PATCH (7MG) 7 MG PATCH.TD24 TD SCH (08:57)
[2020-08-29] MEDS: BUPROPION XL 150 MG TAB.ER.24 PO SCH ×2 (08:57→16:51)
--- NOTE | 2020-08-29 08:57 | NUR ---
BP RECHECKED BEFORE AM MEDS GIVEN 109/61 HEARTRATE 70.
--- NOTE | 2020-08-29 11:09 | NUR ---
given ativan for nervousness.
[2020-08-29] MEDS: ACETAMINOPHEN 325 MG TABLET PO PRN (15:17)
--- NOTE | 2020-08-29 15:20 | NUR ---
given tylenol 650 mg po for back pain.
[2020-08-29 16:00] VITALS: BP 117/70
--- NOTE | 2020-08-29 17:24 | NUR ---
Pt. is anxious, talking loudly to self and asking for Ativan po. Ativan po is not due until 1900. Called Dr. lentz and notified and ordered Ativan 1 mg po X1.
[2020-08-29] MEDS ORDERED: LORAZEPAM 1 MG TABLET PO ONE (17:30)
--- NOTE | 2020-08-29 17:34 | NUR ---
GIVEN ATIVAN FOR AGITATION.GOT OK FROM DR. DIMAS TO GIVE EARLY.
[2020-08-29 20:28] VITALS: BP 114/66
[2020-08-29] MEDS: QUETIAPINE FUMARATE 100 MG TABLET PO SCH (21:03)
[2020-08-29] MEDS: TEMAZEPAM 7.5 MG CAPSULE PO PRN (22:06)
--- NOTE | 2020-08-29 22:07 | NUR ---
RN NOTES: INSOMNIA : PT. C/O UNABLE TO SLEEP, RESTORIL 15 MG PO PRN GIVEN PER PT.REQUEST, WILL CONTINUE TO MONITOR.
[2020-08-30 08:00] VITALS: BP 100/58
[2020-08-30] MEDS: BUPROPION XL 150 MG TAB.ER.24 PO SCH ×2 (08:17→16:13)
[2020-08-30] MEDS: LORAZEPAM 1 MG TABLET PO PRN ×2 (08:17→17:59)
[2020-08-30] MEDS: NICOTINE PATCH (7MG) 7 MG PATCH.TD24 TD SCH (08:17)
[2020-08-30] MEDS: GABAPENTIN 300 MG CAPSULE PO SCH ×3 (08:17→16:13)
[2020-08-30] MEDS: ACETAMINOPHEN 325 MG TABLET PO PRN (10:25)
[2020-08-30] MEDS ORDERED: LORAZEPAM INJ 2 MG/ML VIAL IM/IV STA (13:25)
[2020-08-30] MEDS ORDERED: HALOPERIDOL LACTATE INJ 5 MG/ML VIAL IM STA (13:25)
[2020-08-30] MEDS ORDERED: diphenhydrAMINE HCL 50 MG/ML VIAL IM STA (13:25)
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
--- NOTE | 2020-08-30 13:46 | NUR ---
RN NOTE PATIENT RESTING IN BED. CALM AND RELAXED.
[2020-08-30 16:00] VITALS: BP 117/69
[2020-08-30 20:00] VITALS: BP 111/59
[2020-08-30] MEDS: QUETIAPINE FUMARATE 100 MG TABLET PO SCH (21:20)
[2020-08-30] MEDS: TEMAZEPAM 7.5 MG CAPSULE PO PRN (21:45)
--- NOTE | 2020-08-30 21:45 | NUR ---
GPS-RN NOTES: INSOMNIA PT. C/O INABILITY TO SLEEP. ADMINISTERED RESTORIL 15MG PO ORDERED. WILL CONTINUE TO MONITOR PT'S SAFETY.
[2020-08-31] MEDS: LORAZEPAM 1 MG TABLET PO PRN ×4 (01:26→21:43)
--- NOTE | 2020-08-31 01:26 | NUR ---
GPS-RN NOTES: ANXIETY PATIENT C/O FEELING ANXIOUS. ADMINISTERED ATIVAN 1MG PO ORDERED PER PT'S REQUEST. WILL CONTINUE TO MONITOR PT'S SAFETY.
[2020-08-31] MEDS: BUPROPION XL 150 MG TAB.ER.24 PO SCH ×2 (08:16→17:10)
[2020-08-31] MEDS: NICOTINE PATCH (7MG) 7 MG PATCH.TD24 TD SCH (08:16)
[2020-08-31] MEDS: GABAPENTIN 300 MG CAPSULE PO SCH ×3 (08:16→17:10)
[2020-08-31 08:59] VITALS: BP 106/66
[2020-08-31] MEDS: ACETAMINOPHEN 325 MG TABLET PO PRN ×2 (09:26→20:27)
--- NOTE | 2020-08-31 09:28 | NUR ---
RN NOTE: ANXIETY AND PAIN PT C/O 08/12 HEAD ACHE AND ANXIETY . PT REQUESTING ATIVAN AND TYLENOL. ATIVAN AND TYLENOL ADMINISTERED.
--- NOTE | 2020-08-31 15:35 | NUR ---
RN NOTE: ANXIETY PT C/O INCREASING ANXIETY. REQUESTING ATIVAN. ATIVAN 1MG PO PRN ADMINISTERED
[2020-08-31 16:00] VITALS: BP 103/66
[2020-08-31 20:00] VITALS: BP 116/67
[2020-08-31] MEDS: QUETIAPINE FUMARATE 100 MG TABLET PO SCH (21:02)
[2020-08-31] MEDS: TEMAZEPAM 7.5 MG CAPSULE PO PRN (21:25)
--- NOTE | 2020-08-31 21:25 | NUR ---
GPS-RN NOTES: INSOMNIA PT. C/O INABILITY TO SLEEP. ADMINISTERED RESTORIL 15MG PO ORDERED. WILL CONTINUE TO MONITOR PT'S SAFETY.
--- NOTE | 2020-08-31 21:43 | NUR ---
GPS-RN NOTES: ANXIETY PATIENT C/O FEELING ANXIOUS. ADMINISTERED ATIVAN 1MG PO ORDERED PER PT'S REQUEST. WILL CONTINUE TO MONITOR PT'S SAFETY.
[2020-09-01] MEDS: LORAZEPAM 1 MG TABLET PO PRN ×2 (06:10→12:27)
--- NOTE | 2020-09-01 06:11 | NUR ---
GPS-RN NOTES: ANXIETY PATIENT C/O FEELING ANXIOUS. ADMINISTERED ATIVAN 1MG PO ORDERED PER PT'S REQUEST. WILL CONTINUE TO MONITOR PT'S SAFETY.
[2020-09-01 08:00] VITALS: BP 110/70
[2020-09-01] MEDS: NICOTINE PATCH (7MG) 7 MG PATCH.TD24 TD SCH (08:20)
[2020-09-01] MEDS: GABAPENTIN 300 MG CAPSULE PO SCH ×3 (08:20→16:04)
[2020-09-01] MEDS: BUPROPION XL 150 MG TAB.ER.24 PO SCH ×2 (08:21→16:04)
[2020-09-01] MEDS: ACETAMINOPHEN 325 MG TABLET PO PRN (09:25)
--- NOTE | 2020-09-01 09:26 | NUR ---
RN NOTES: PAIN PT C/O ACHING HEADACHE IN THE BACK OF THE HEAD RATED 3/10. TYLENOL 650MG PO PRN GIVEN AT 09:25AM. WILL CONTINUE TO MONITOR.
--- NOTE | 2020-09-01 10:52 | NUR ---
SNF Referral: EMILY faxed a referral to [facility] with attn to AYSHA and Juan to the fax number: [phone].
--- NOTE | 2020-09-01 10:53 | NUR ---
SNF Contact: AYSHA ([phone]) from [facility] contacted the SW and stated that the pt was accepted to their facility.
--- NOTE | 2020-09-01 12:05 | NUR ---
Family Contact: SW spoke with the pts mother, Netta ([phone]), and informed her that the pt will be discharged to [facility] today.
--- NOTE | 2020-09-01 12:29 | NUR ---
RN NOTE: ANXIETY PT STATED HE IS EXPERIENCING ANXIETY. ATIVAN 1MG PO PRN GIVEN. WILL CONTINUE TO MONITOR.
--- NOTE | 2020-09-01 12:39 | NUR ---
Discharge Note: Pt will be discharged to [facility] ([facility]) located at [address] [place] [id number]; ([phone]). Pt will be transported via [facility] at 4PM. Pts mother, Netta ([phone]), was informed of the discharge. Upon discharge, the pt appears to be in a euthymic mood and presents with a calm affect. Pt appears to be alert and oriented x4 (time, place, self and situation). Pt denies both suicidal and homicidal ideation as well as auditory and visual hallucinations. SW provided patient with the 2019 [facility] Program list. SW provided patient with a copy of the [facility] homeless directory which provides information on locations for hot meals, sack lunches, food pantries, and showers. EMILY provided an additional list of mental health clinics: [facility] [address] [place] [address] ([phone]); [facility] [address] [place] [address] ([phone]); a list of medical clinics; [facility] [address] [facility] [address], [place]. [place], ; [facility] [address] EMILY Provided [facility] [address] [place] [address]: ([phone]). Patient was provided with a brief substance abuse intervention and referred to the following substance abuse programs: [facility] Substance Abuse Self-helpline ([phone]); [facility] [address] [place] [address] ([phone]); [facility] [address] [facility] [address] ([phone]); [facility] ([phone]); [facility] ([phone]); [facility] ([phone]); [facility] ([phone]). Pt will be under the care of his psychiatrist, Dr. Minor, located at [address], [address] [place] [address]; and his nut tightener, Dr. Cates, located at [address] [place] [address]; . Pt will continue to address his substance abuse with this treatment team. Pt signed the homeless waiver and the Choice of Vendor form and copies were provided to the pt. Pts multidisciplinary exit care was completed, signed and a copy was provided to the pt as well.
--- NOTE | 2020-09-01 15:40 | NUR ---
RN NOTE: REPORT TO SNF REPORT GIVEN TO SAGAR STEPHENS IN [facility] , FOR KG. PICK-UP SCHEDULED FOR 4PM.
[2020-09-01 16:00] VITALS: BP 123/88
--- NOTE | 2020-09-01 16:15 | NUR ---
REEL SLITTER NOTE: 55 YEAR OLD MALE DISCHARGE TO [facility] IN STABLE CONDITION. PT IS COMPLIANT WITH MEDICATIONS, COOPERATIVE WITH TREATMENT PLANS. PATIENT DENIES SI/HI AND INSTRUCTED TO GO TO THE CLOSEST ER IF DEVELOPING SI/HI. BEHAVIOR IMPORVED, PSYCHIATRIC TREATMENT PLANS MET, MEDICAL TREATMENT PLANS DEFERRED FOR CONTINUAL MONITORING. EDUCATED PATIENT ABOUT AFTER CARE/EXIT CARE AND COPY PROVIDED. RETURNED PERSONAL BELONGINGS TO PATIENT. MEDICATIONS RECONCILED WITH DR. HERNANDEZ AND DR. NIETO. REPORT GIVEN TO ANGELO KEITH FOR CONTINUITY OF CARE. PATIENT SIGNED DISCHARGE PAPERWORK. SKIN INTACT ON ADMIT AND DISCHARGE. PATIENT LEFT THE UNIT 16:15 VIA GURNEY WITH EMS. PATIENT ID BAND REMOVED.
== END 2020-09-01 16:15 | DRG 885 ==
LOC: GPS 13:50
PROVIDERS: ADMIT Psychiatry & Neurology Psychiatry; ATTEND Internal Medicine
DX: F25.9 Schizoaffective disorder, unspecified (principal); Z59.0 Homelessness; F17.210 Nicotine dependence, cigarettes, uncomplicated; E78.5 Hyperlipidemia, unspecified; F12.10 Cannabis abuse, uncomplicated; F41.9 Anxiety disorder, unspecified; Z79.899 Other long term (current) drug therapy; R53.1 Weakness; R27.8 Other lack of coordination; Z91.81 History of falling; F19.10 Other psychoactive substance abuse, uncomplicated; Z73.6 Limitation of activities due to disability
CPT/HCPCS: 36415; 80053-TC; 80061-TC; 82962-TC; 87081-TC; J1200; J1630; J2060

== ENCOUNTER 2020-09-05 17:20 | Inpatient (IN) | payer MEDICARE, OTHER ==
[~2020-09-05] VITALS: Ht 162.6 cm; Wt 66.7 kg
[~2020-09-05 17:20] MED LIST changes: -AMOX875T2 PO; +BUPR-96 PO; -BUPR100T7; -CEPH-570 PO; -IBUP-1955 PO; +LORA-259 PO; -NICO-676 TD; -OLAN15TA3; -PARO30TA4; +QUET200T PO; +RESTORIL; -TRAZ-257 PO
--- NOTE | 2020-09-05 17:20 | NUR ---
PT SKY FROM [facility] FOR AGITATION AND AGGRESSIVE BEHAVIOR. PT IS AAOX4, NOT IN RESPIRATORY DISTRESS, V/S STABLE, KEPT RESTED AND COMFORTABLE. SITTER AT BEDSIDE. WILL CONTINUE TO MONITOR.
--- NOTE | 2020-09-05 17:29 | NUR ---
URINE SPECIMEN COLLECTED AND SENT TO LAB.
--- NOTE | 2020-09-05 17:34 | NUR ---
SEEN AND EXAMINED BY JOSE RASHID
[2020-09-05] MEDS ORDERED: LORAZEPAM INJ 2 MG/ML VIAL ONE (17:48)
[2020-09-05] MEDS ORDERED: LORAZEPAM INJ 2 MG/ML VIAL IM ONE ×2 (18:00)
[2020-09-05 18:06] LABS: BILIRUBIN,URINE NEGATIVE (NEGATIVE); COLOR,URINE YELLOW (YELLOW); LEUKOCYTE ESTERASE ,URINE NEGATIVE (NEGATIVE); NITRITE, URINE NEGATIVE (NEGATIVE); PROTEIN,URINE NEGATIVE (NEGATIVE); UGLUCOSE NEGATIVE (NEGATIVE); UROBILINOGEN,URINE 0.2 EU/dL (0.2)
--- NOTE | 2020-09-05 18:19 | NUR ---
COVID NEGATIVE PER LAB REPORT
[2020-09-05 18:26] LABS: BASOPHILS # (AUTO) 0.1 /CMM (0.0-0.2); BASOPHILS % (AUTO) 0.8 % (0.0-2.0); EOSINOPHILS % (AUTO) 5.8 % (0.0-6.0); HEMATOCRIT 44 % (39-51); HEMOGLOBIN 14.4 g/dL (13.5-17.5); LYMPHOCYTES # (AUTO) 3.8 /CMM (0.8-4.8); LYMPHOCYTES % (AUTO) 32.7 % (20.0-44.0); MEAN CORPUSCULAR HGB CONC 33 g/dl (31.0-36.0); MEAN CORPUSCULAR VOLUME 90 fL (80-96); MONOCYTES # (AUTO) 0.9 /CMM (0.1-1.30); MONOCYTES % (AUTO) 7.4 % (2.0-12.0); NEUTROPHILS # (AUTO) 6.3 /CMM (1.8-8.9); NEUTROPHILS % (AUTO) 53.3 % (43.0-81.0); PLATELET COUNT (AUTO) 450 /CMM (150-450); RED BLOOD CELL COUNT(AUTO) 4.86 MIL/uL (4.5-6.0); WHITE BLOOD COUNT (AUTO) 11.7 K/uL (4.3-11.0)
[2020-09-05 18:37] LABS: CALCIUM, SERUM 9.2 mg/dL (8.5-10.1); CARBON DIOXIDE 21 mmol/L (21-32); CHLORIDE 96 mmol/L (98-107); CREATININE 1.2 mg/dL (0.6-1.3); GLUCOSE 117 mg/dL (74-106); POTASSIUM 3.7 mmol/L (3.5-5.1); SODIUM SERUM 136 mmol/L (136-145); UREA NITROGEN, BLOOD 15 mg/dL (7-18)
[2020-09-05 18:43] LABS: ALANINE AMINOTRANSFERASE 30 U/L (12-78); ALBUMIN 4.1 g/dL (3.4-5.0); ALKALINE PHOSPHATASE 96 U/L (46-116); ASPARTATE AMINOTRANSFERASE 13 U/L (15-37); BILIRUBIN,DIRECT 0.1 mg/dL (0.0-0.2); BILIRUBIN,TOTAL 0.1 mg/dL (0.2-1.0); TOTAL PROTEIN, SERUM 7.8 g/dL (6.4-8.2)
[2020-09-05 18:46] LABS: ACETAMINOPHEN < 2 ug/ml (10-30); ALCOHOL, BLOOD < 3 mg/dL (0-0)
--- NOTE | 2020-09-05 18:50 | NUR ---
called foreign law consultant whitley carrero. did not answer and voicemail box full.
--- NOTE | 2020-09-05 19:02 | NUR ---
second attempt to reach osburn did not answer
--- NOTE | 2020-09-05 19:40 | NUR ---
attempted to call fieldwork coordinator magan, did not answer.
--- NOTE | 2020-09-05 20:15 | NUR ---
MELODIE MELENDEZ 1 HOUR
[2020-09-05] MEDS ORDERED: OLANZAPINE 10 MG VIAL IM ONE ×2 (20:33→21:00)
--- NOTE | 2020-09-05 23:33 | NUR ---
REPORT GIVEN TO FA RN FOR CONTINUATION OF CARE.
--- NOTE | 2020-09-06 00:05 | NUR ---
PT TO GPS VIA WHEELCHAIR.
[2020-09-06] MEDS ORDERED: MAGNESIUM HYDROXIDE 30 ML UDC PO PRN ×2 (00:30→16:30)
[2020-09-06] MEDS ORDERED: BLOOD SUGAR DIAGNOSTIC 1 EACH STRIP IN ONE (00:30)
[2020-09-06] MEDS ORDERED: MAG HYDROX/AL HYDROX/SIMETH 30 ML UDC PO PRN (00:30)
[2020-09-06 00:57] VITALS: BP 124/81
[2020-09-06] MEDS ORDERED: TEMAZEPAM 15 MG CAPSULE PO PRN (01:00)
--- NOTE | 2020-09-06 02:08 | NUR ---
GPS MANAGER SUPPLY CHAIN PLANNING NOTES: ADMITTED A 55 Y/O MALE FROM ER, ORIGINALLY FROM [facility]. PATIENT ARRIVED THIS UNIT VIA W/C WITH ER STAFF. PATIENT IS ON A 5150 HOLD PLACED 09/05/20 @ 22:19 FOR DTS/DTO/GD. PER HOLD PATIENT WAS AGGRESSIVE, NOT SPEAKING CLEARLY, TALKING ABOUT SOMEONE WHO WAS NOT IN THE ROOM, NOT COMPLIANT WITH STAFF, YELLING AND VERBALLY ABUSIVE AND AGGRESSIVE, MAKING UP STORIES ABOUT STAFF AND RESTLESS. UPON FACE TO FACE EVALUATION PATIENT APPEARS DEPRESSED, ANXIOUS, RESTLESS, FLAT AFFECT, AGITATED, CONFUSED, DISORGANIZED, LOOSE ASSOCIATION, HYPERVERBAL, ASKING "WHERE IS MY XANAX, I WANT IT NOW". ASKING FOR BREAKFAST. SNACKS GIVEN. UNABLE TO FOLLOW DIRECTION. PATIENT HAS NO S/S OF DISTRESS, PATIENT BREATHING IS EVEN AND UNLABORED WITH EQUAL RISE AND FALL OF THE CHEST ON ROOM AIR. V/S WNL. DENIES ANY PAIN, DENIES SI AT THIS TIME. PATIENT REFUSED TO SIGN ADMISSION PAPERWORK. PATIENT ADVISED OF HIS HOLD AND PATIENT RIGHTS BOOKLET GIVEN. PATIENT BS89MG/DL, MRSA SWAP BOTH NARES DONE, SKIN ASSESSMENT DONE, SKIN IS INTACT. PATIENT BELONGINGS WERE INVENTORIED AND CHECKED FOR CONTRABAND. CONTRABAND PLACED IN PATIENT HALLWAY LOCKER. IMMUNIZATION QUESTIONER COMPLETED, PATIENT REFUSED IMMUNIZATIONS. PATIENT IS UNDER THE PSYCHIATRIC CARE OF DR DIMAS, AND MEDICAL CARE OF HARRY LIU. BOTH HAVE BEEN INFORMED OF PATIENT ADMISSION AND ORDERS CARRIED OUT. PATIENT BED SIDE RAILS ARE UP X2 FOR SAFETY. PATIENT BED IS IN LOWEST POSITION AND LOCKED. WILL CONTINUE TO MONITOR Q15 FOR SAFETY, MOOD AND BEHAVIOR.
--- NOTE | 2020-09-06 03:10 | NUR ---
GPS RN NOTES: HARRY LIU MADE AWARE OF MED RECON.
--- NOTE | 2020-09-06 06:40 | NUR ---
GPS RN CLOSING NOTES: PATIENT SLEEPING COMFORTABLY IN BED. SLEPT 4HR THIS SHIFT. NO C/O PAIN. NO S/S OF DISTRESS. RESPIRATION EVEN AND UNLABORED WITH EQUAL RISE AND FALL OF THE CHEST ON ROOM AIR. ALL PATIENT CARE NEEDS HAVE BEEN MET ANTICIPATED. WILL CONTINUE TO MONITOR FOR SAFETY, MOOD AND BEHAVIOR AND ENDORSE TO AM SHIFT.
[2020-09-06] MEDS ORDERED: TRAM50TA2 PO (07:39)
[2020-09-06] MEDS ORDERED: MAGN400O6 PO (07:39)
[2020-09-06] MEDS ORDERED: CHOL100062 PO (07:39)
[2020-09-06] MEDS ORDERED: CICL6.6S5 TP (07:39)
[2020-09-06] MEDS ORDERED: BISA10SU11 RC (07:39)
[2020-09-06] MEDS ORDERED: TEMA15CA PO (07:39)
[2020-09-06] MEDS ORDERED: ZINC1CAP2 PO (07:39)
[2020-09-06] MEDS ORDERED: NA P133E RC (07:39)
[2020-09-06] MEDS ORDERED: ACET-868 PO (07:39)
[2020-09-06] MEDS ORDERED: ALPR1TAB2 PO (07:39)
[2020-09-06] MEDS ORDERED: ASCO-352 PO (07:39)
[2020-09-06 08:00] VITALS: BP 106/58
[2020-09-06 08:26] LABS: CALCIUM, SERUM 8.4 mg/dL (8.5-10.1); CREATININE 0.8 mg/dL (0.6-1.3); POTASSIUM 4.1 mmol/L (3.5-5.1)
[2020-09-06] MEDS: LORAZEPAM 0.5 MG TABLET PO PRN (08:27)
--- NOTE | 2020-09-06 08:30 | NUR ---
RNMoniqueCO: ATIVAN WAS REQUESTED BY PT FOR C/O ANXIETY.
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
[2020-09-06] MEDS ORDERED: LORAZEPAM INJ 2 MG/ML VIAL IM STA (10:38)
[2020-09-06] MEDS ORDERED: diphenhydrAMINE HCL 50 MG/ML VIAL IM STA (10:38)
[2020-09-06] MEDS ORDERED: HALOPERIDOL LACTATE INJ 5 MG/ML VIAL IM STA (10:38)
[2020-09-06] MEDS: PAROXETINE HCL 20 MG TABLET PO SCH (10:58)
--- NOTE | 2020-09-06 10:58 | NUR ---
RN-CO: PATIENT REFUSED PAXIL AND STATED, " I WANT WELLBUTRIN!"
--- NOTE | 2020-09-06 11:17 | NUR ---
RN-CO: PATIENT IS LYING ON BED M, EYES CLOSED , RESPIRATION EVEN AND UNLABORED.
[2020-09-06] MEDS: GABAPENTIN 300 MG CAPSULE PO SCH ×2 (12:09→16:47)
[2020-09-06 16:00] VITALS: BP 104/58
[2020-09-06] MEDS ORDERED: BISACODYL SUPP (10 MG) 10 MG/SUPP.RECT SUPP.RECT RC PRN (16:30)
[2020-09-06] MEDS ORDERED: ACETAMINOPHEN 325 MG TABLET PO PRN (16:30)
[2020-09-06] MEDS ORDERED: NA PHOS,M-B/NA PHOS,DI-BA 1 EA ENEMA RC PRN (16:30)
[2020-09-06 20:20] VITALS: BP 111/56
[2020-09-06] MEDS: OLANZAPINE 10 MG TABLET PO SCH (21:27)
[2020-09-06] MEDS: TRAZODONE 50 MG TABLET PO SCH (21:27)
[2020-09-07 06:41] LABS: BASOPHILS # (AUTO) 0.1 /CMM (0.0-0.2); BASOPHILS % (AUTO) 1.3 % (0.0-2.0); EOSINOPHILS % (AUTO) 6.3 % (0.0-6.0); HEMATOCRIT 43 % (39-51); HEMOGLOBIN 14.1 g/dL (13.5-17.5); LYMPHOCYTES % (AUTO) 29.9 % (20.0-44.0); MEAN CORPUSCULAR HGB CONC 33 g/dl (31.0-36.0); MEAN CORPUSCULAR VOLUME 89 fL (80-96); MONOCYTES # (AUTO) 0.5 /CMM (0.1-1.30); MONOCYTES % (AUTO) 7.8 % (2.0-12.0); NEUTROPHILS # (AUTO) 3.7 /CMM (1.8-8.9); NEUTROPHILS % (AUTO) 54.7 % (43.0-81.0); PLATELET COUNT (AUTO) 333 /CMM (150-450); RED BLOOD CELL COUNT(AUTO) 4.77 MIL/uL (4.5-6.0); WHITE BLOOD COUNT (AUTO) 6.8 K/uL (4.3-11.0)
[2020-09-07 08:00] VITALS: BP 113/67
[2020-09-07] MEDS: CHOLECALCIFEROL 1,000 UNIT TABLET (VIT D3) PO SCH (08:43)
[2020-09-07] MEDS: GABAPENTIN 300 MG CAPSULE PO SCH ×3 (08:43→16:14)
[2020-09-07] MEDS: PAROXETINE HCL 20 MG TABLET PO SCH (08:43)
[2020-09-07] MEDS: ASCORBIC ACID 500 MG TABLET PO SCH (08:43)
[2020-09-07] MEDS: LORAZEPAM 0.5 MG TABLET PO PRN (09:58)
--- NOTE | 2020-09-07 09:58 | NUR ---
MS/RN NOTE PATIENT IS SEEN TO BE AGITATED, PATIENT TALKING TO SELF, YELLING. PATIENT PACING INSIDE OF HIS ROOM, GAVE PATIENT ATIVAN 1MG.
--- NOTE | 2020-09-07 11:07 | NUR ---
MS/RN NOTE CHARGE NURSE SPOKE WITH DR. DIMAS AND OBTAINED NEW TELEPHONE ORDERS. MD ORDERS RECEIVED, CHANGE ATIVAN TO 2MG Q4HRS PRN DO NOT EXCEED 6MG IN 24 HOURS, AND CARRIED OUT. PER CHARGE NURSE, STATED TO CHARGE NURSE THAT MD WILL COME TO UNIT FLOOR TO ASSESS PATIENT LATER IN THE DAY.
--- NOTE | 2020-09-07 11:14 | NUR ---
MS/RN NOTE PATIENT WAS CHANGED TO DIFFERENT ROOM DUE TO INCREASED AGITATION AND HIGH RISK OF PATIENT HURTING ROOMMATE. PATIENT IS CURRENTLY LAYING IN HOSPITAL BED IN NEW ROOM, 214-1.
[2020-09-07] MEDS ORDERED: LORAZEPAM 1 MG TABLET PO PRN (11:30)
[2020-09-07 16:36] VITALS: BP 94/63
[2020-09-07 20:00] VITALS: BP 101/60
[2020-09-07] MEDS: TRAZODONE 50 MG TABLET PO SCH (21:09)
[2020-09-07] MEDS: OLANZAPINE 10 MG TABLET PO SCH (21:10)
[2020-09-08 08:00] VITALS: BP 113/65
[2020-09-08] MEDS: ASCORBIC ACID 500 MG TABLET PO SCH (08:32)
[2020-09-08] MEDS: GABAPENTIN 300 MG CAPSULE PO SCH ×3 (08:32→16:27)
[2020-09-08] MEDS: CHOLECALCIFEROL 1,000 UNIT TABLET (VIT D3) PO SCH (08:32)
[2020-09-08] MEDS: PAROXETINE HCL 20 MG TABLET PO SCH (08:32)
--- NOTE | 2020-09-08 09:00 | NUR ---
RN NOTE- PT LABILE ANXIOUS PO INTAKE GOOD MED COMPLIANT DIRECTABLE DENIES ALL AT MOMENT WITHDRAWN ISOLATIVE
[2020-09-08] MEDS: LORAZEPAM 1 MG TABLET PO PRN ×3 (10:54→20:42)
--- NOTE | 2020-09-08 10:54 | NUR ---
RN NOTE- ANXIETY PRESENT. ATIVAN 1 MG GIVEN
--- NOTE | 2020-09-08 11:20 | NUR ---
RN NOTE- RX EFFECTIVE. PT CALM
[2020-09-08] MEDS: diphenhydrAMINE HCL ELIX 25 MG/10 ML UDC PO PRN ×2 (15:57→21:37)
--- NOTE | 2020-09-08 15:58 | NUR ---
RN NOTE- PT W ALLERGIES. RHINNORHEA PRESENT. GREASE MAKER NACHO INFORMED. BENADRYL 25 MG PO Q8H PRN ORDERED. FIRST DOSE GIVEN
[2020-09-08 16:00] VITALS: BP 129/75
--- NOTE | 2020-09-08 16:34 | NUR ---
Psychosocial Note: I, Yaa Martinez MSW, attest to the patients previous psychosocial information dated on 08/28/20. Update On Events leading to Admission and Discharge Plan: Pt has returned to the geriatric psychiatric unit within a few days of his previous discharge date (09/01/20) to [facility]. Pt is a 55-year-old male who was readmitted to [facility] on 09/05/20 on a 5150 hold as a danger to others and gravely disabled adult. Per psychiatric hold, pt presents with bizarre behavior and aggressive symptoms. Upon evaluation, pt was aggressive, was not speaking clearly, he was talking about someone who was not in the room. Pt was not compliant with the staff, pt was yelling and being verbally abusive. [facility] reported the pt was verbally aggressive, making up stories about staff and restless. Upon social worker assistant evaluation, the pt appeared to be alert and oriented x4 (time, place, self and situation). Pt appeared to be in a depressed mood and presented with a flat and anxious affect. Pt stated that his major trigger in his life is his current homelessness. Pt stated that he feels overwhelmed with his current life and that he needs assistance. Pt appeared to be isolative in his room and appeared to be distressed. Pts insight and judgment appear to be impaired and pts impulse control is poor. EMILY spoke to AYSHA ([phone]) from [facility] who stated that the DON is currently unsure if the pt can return. EMILY will work with the pt and the MD regarding appropriate discharge planning. EMILY will form a safe and proper discharge.
--- NOTE | 2020-09-08 16:34 | NUR ---
Family Contact: SW called the pts mother, Netta ([phone]), and informed him that the pt was readmitted to the hospital and that the SW will keep her updated regarding his discharge.
--- NOTE | 2020-09-08 17:30 | NUR ---
RN NOTE- ANXIETY STATED. ATIVAN 1 MG GIVEN
[2020-09-08 20:00] VITALS: BP 115/68
[2020-09-08] MEDS: OLANZAPINE 10 MG TABLET PO SCH (21:35)
[2020-09-08] MEDS: TRAZODONE 50 MG TABLET PO SCH (21:36)
[2020-09-08] MEDS: ATORVASTATIN 10 MG TABLET PO SCH (21:36)
[2020-09-09 08:00] VITALS: BP 110/68
[2020-09-09] MEDS: ASCORBIC ACID 500 MG TABLET PO SCH (08:35)
[2020-09-09] MEDS: CHOLECALCIFEROL 1,000 UNIT TABLET (VIT D3) PO SCH (08:35)
[2020-09-09] MEDS: GABAPENTIN 300 MG CAPSULE PO SCH ×3 (08:35→17:06)
[2020-09-09] MEDS: PAROXETINE HCL 20 MG TABLET PO SCH (08:36)
--- NOTE | 2020-09-09 10:15 | NUR ---
SNF Contact: SW contacted CJ ([phone]) from [facility] who stated that the pt is not going to be accepted back to their facility due to his aggressive behavior.
[2020-09-09] MEDS: LORAZEPAM 1 MG TABLET PO PRN ×2 (11:00→17:06)
--- NOTE | 2020-09-09 11:00 | NUR ---
GPS RN NOTE: PATIENT FEELING ANXIOUS REQUESTING MEDICATION ATIVAN GIVEN PER ORDER WILL CONTINUE MONITORING
[2020-09-09] MEDS: diphenhydrAMINE HCL ELIX 25 MG/10 ML UDC PO PRN ×2 (12:01→20:14)
[2020-09-09 16:00] VITALS: BP 114/64
--- NOTE | 2020-09-09 17:52 | NUR ---
GPS RN NOTE: DR LAMBERT ORDER ATIVAN 0.5 MG PO Q4HR PRN ORDER PLACED AND CARED OUT
[2020-09-09 20:59] VITALS: BP 112/63
[2020-09-09] MEDS: OLANZAPINE 10 MG TABLET PO SCH (20:59)
[2020-09-09] MEDS: TRAZODONE 50 MG TABLET PO SCH (20:59)
[2020-09-09] MEDS: ATORVASTATIN 10 MG TABLET PO SCH (21:00)
[2020-09-10 08:00] VITALS: BP 120/73
[2020-09-10] MEDS: LORAZEPAM 1 MG TABLET PO PRN ×3 (08:13→23:16)
--- NOTE | 2020-09-10 08:13 | NUR ---
GPS/RN-NOTES PATIENT REQUESTING ATIVAN FOR ANXIETY. ATIVAN 0.5MG P.O GIVEN PRN ORDER. WILL CONT. MONITORING FOR SAFETY AND BEHAVIOR.
[2020-09-10] MEDS: GABAPENTIN 300 MG CAPSULE PO SCH ×3 (08:53→16:31)
[2020-09-10] MEDS: ASCORBIC ACID 500 MG TABLET PO SCH (08:53)
[2020-09-10] MEDS: PAROXETINE HCL 20 MG TABLET PO SCH ×2 (08:53→08:58)
[2020-09-10] MEDS: CHOLECALCIFEROL 1,000 UNIT TABLET (VIT D3) PO SCH (08:53)
[2020-09-10] MEDS: diphenhydrAMINE HCL ELIX 25 MG/10 ML UDC PO PRN ×2 (09:09→19:55)
--- NOTE | 2020-09-10 09:13 | NUR ---
GPS/RN-NOTES PATIENT LAYING IN BED AWAKE,ALERT ,CALM NO ACUTE DISTRESS NOTED. PATIENT C/O RHINITIS AND REQUESTING BENADRYL. BENADRYL 2MG P.O GIVEN PRN. WILL CONT. MONITORING. FOR SAFETY AND BEHAVIOR.
--- NOTE | 2020-09-10 14:25 | NUR ---
GPS/RN-NOTES PATIENT NOTED PACING IN THE HALLWAY REQUESTING ATIVAN . ATIVAN 0.5MG P.O GIVEN PRN ORDER. WILL CONT. MONITORING FOR SAFETY AND BEHAVIOR.
[2020-09-10] MEDS: ACETAMINOPHEN 325 MG TABLET PO PRN ×2 (14:50→23:16)
--- NOTE | 2020-09-10 14:52 | NUR ---
GPS/RN-NOTES PATIENT C/O HEADACHE AND REQUESTING FOR TYLENOL, TYLENOL 650MG P.O GIVEN PRN ORDER. WILL CONT. MONITORING FOR SAFETY AND BEHAVIOR.
--- NOTE | 2020-09-10 15:19 | NUR ---
GPS/RN-NOTES PATIENT REQUESTING NICOTINE PATCH. DNP MADE AWARE WITH T. O ORDER OF NICOTINE PATCH 14MG QD. NOTED AND CARRIED OUT.
--- NOTE | 2020-09-10 15:30 | NUR ---
GPS/RN-NOTES PATIENT LAYING IN BED AWAKE,ALERT,CALM,NO ACUTE DISTRESS NOTED. DENIES ANY PAIN OR DISCOMFORT AT THIS TIME.
[2020-09-10] MEDS: NICOTINE PATCH (14MG) 14 MG PATCH.TD24 TD SCH (15:31)
[2020-09-10 16:00] VITALS: BP 125/78
[2020-09-10] MEDS: busPIRone 5 MG TABLET PO SCH (16:31)
--- NOTE | 2020-09-10 19:51 | NUR ---
GPS RN NOTE PT AMBULATING HALLWAYS, STEADY GAIT. PT C/O OF CONGESTION AROUND EYES, AND RHINITIS REQUESTS BENADRYL AT THIS TIME. PO 25MG PRN ADMINISTERED ORDERED. WILL CONT TO MONITOR FOR SAFETY AND BEHAVIOR.
[2020-09-10 20:56] VITALS: BP 124/72
[2020-09-10] MEDS: OLANZAPINE 10 MG TABLET PO SCH (21:27)
[2020-09-10] MEDS: ATORVASTATIN 10 MG TABLET PO SCH (21:30)
[2020-09-10] MEDS: TRAZODONE 50 MG TABLET PO SCH (21:31)
--- NOTE | 2020-09-10 23:26 | NUR ---
GPS RN NOTE PT REQUESTED TYLENOL C/O PAIN IN HIS BACK 08/12 WELL VERBALIZED ANXIETY AND REQUESTS ANTI ANXIETY MEDICATION. TYLENOL 650MG PRN AND ATIVAN 0.5MG PRN ADMINISTERED ORDERED.
[2020-09-11 08:00] VITALS: BP 123/66
[2020-09-11] MEDS: ASCORBIC ACID 500 MG TABLET PO SCH (08:13)
[2020-09-11] MEDS: busPIRone 5 MG TABLET PO SCH ×3 (08:13→16:30)
[2020-09-11] MEDS: CHOLECALCIFEROL 1,000 UNIT TABLET (VIT D3) PO SCH (08:13)
[2020-09-11] MEDS: GABAPENTIN 300 MG CAPSULE PO SCH ×3 (08:13→16:30)
[2020-09-11] MEDS: NICOTINE PATCH (14MG) 14 MG PATCH.TD24 TD SCH (08:13)
[2020-09-11] MEDS: BUPROPION XL 150 MG TAB.ER.24 PO SCH (08:14)
[2020-09-11] MEDS: PAROXETINE HCL 20 MG TABLET PO SCH (08:15)
[2020-09-11] MEDS: diphenhydrAMINE HCL ELIX 25 MG/10 ML UDC PO PRN (10:17)
--- NOTE | 2020-09-11 10:20 | NUR ---
GPS/RN-NOTES PATIENT C/O RHINITIS AND REQUESTING BENADRYL. BENADRYL 2MG P.O GIVEN PRN. WILL CONT. MONITORING. FOR SAFETY AND BEHAVIOR.
--- NOTE | 2020-09-11 10:30 | NUR ---
Individual Intervention: SW met with the pt in the hallway and he expressed that he understands that he cannot return to [facility] and stated that he was at a [facility] before and he stated that he liked that facility. SW stated that she will send a referral there for him.
[2020-09-11] MEDS: LORAZEPAM 1 MG TABLET PO PRN ×2 (11:11→19:31)
--- NOTE | 2020-09-11 11:12 | NUR ---
GPS/RN-NOTES PATIENT REQUESTING ATIVAN FOR ANXIETY. ATIVAN 0.5MG P.O GIVEN PRN ORDER. WILL CONT. MONITORING FOR SAFETY AND BEHAVIOR.
--- NOTE | 2020-09-11 11:47 | NUR ---
SNF Referral: EMILY faxed a referral to [facility] with attn to Ilir to the fax number: [phone].
--- NOTE | 2020-09-11 11:48 | NUR ---
Probable Cause Hearing: Pts [id number] hold was upheld for grave disability.
--- NOTE | 2020-09-11 12:57 | NUR ---
GPS/RN-NOTES PATIENT LAYING IN BED AWAKE,ALERT,CALM,NO ACUTE DISTRESS NOTED.
[2020-09-11] MEDS: ACETAMINOPHEN 325 MG TABLET PO PRN (14:02)
--- NOTE | 2020-09-11 14:03 | NUR ---
GPS/RN-NOTES PATIENT C/O BACK PAIN AND REQUESTING FOR TYLENOL, TYLENOL 650MG P.O GIVEN PRN ORDER. WILL CONT. MONITORING FOR SAFETY AND BEHAVIOR.
--- NOTE | 2020-09-11 15:00 | NUR ---
GPS/RN-NOTES PATIENT LAYING IN BED ,AWAKE,ALERT CALM DENIES ANY DISCOMFORT OR PAIN AT THIS TIME.
[2020-09-11 16:00] VITALS: BP 110/66
--- NOTE | 2020-09-11 19:35 | NUR ---
RN NOTE: ANXIETY PATIENT VERBALIZED THAT HE IS FEELING ANXIOUS & RESTLESS, REQUESTED TO GET ATIVAN AT THIS TIME. PRN ATIVAN 0.5 MG PO GIVEN ORDERED. WILL CONTINUE TO MONITOR.
[2020-09-11 20:00] VITALS: BP 121/67
[2020-09-11 20:26] VITALS: BP 121/67
--- NOTE | 2020-09-11 20:45 | NUR ---
RN NOTE PATIENT TOOK A SHOWER AT THIS TIME. WILL CONTINUE TO MONITOR.
[2020-09-11] MEDS: ATORVASTATIN 10 MG TABLET PO SCH (21:22)
[2020-09-11] MEDS: OLANZAPINE 10 MG TABLET PO SCH (21:22)
[2020-09-11] MEDS: TRAZODONE 50 MG TABLET PO SCH (21:23)
[2020-09-12 08:00] VITALS: BP 121/74
[2020-09-12] MEDS: ASCORBIC ACID 500 MG TABLET PO SCH (08:18)
[2020-09-12] MEDS: GABAPENTIN 300 MG CAPSULE PO SCH ×3 (08:18→16:17)
[2020-09-12] MEDS: CHOLECALCIFEROL 1,000 UNIT TABLET (VIT D3) PO SCH (08:18)
[2020-09-12] MEDS: BUPROPION XL 150 MG TAB.ER.24 PO SCH (08:19)
[2020-09-12] MEDS: PAROXETINE HCL 20 MG TABLET PO SCH (08:19)
[2020-09-12] MEDS: busPIRone 5 MG TABLET PO SCH ×3 (08:19→16:17)
[2020-09-12] MEDS: NICOTINE PATCH (14MG) 14 MG PATCH.TD24 TD SCH (08:57)
[2020-09-12] MEDS: LORAZEPAM 1 MG TABLET PO PRN (10:35)
[2020-09-12] MEDS: diphenhydrAMINE HCL ELIX 25 MG/10 ML UDC PO PRN ×2 (13:09→21:27)
[2020-09-12] MEDS: hydrOXYzine 10 MG TABLET PO PRN (14:57)
[2020-09-12 16:00] VITALS: BP 123/75
[2020-09-12] MEDS: TRAMADOL HCL 50 MG TABLET PO PRN (20:11)
--- NOTE | 2020-09-12 20:13 | NUR ---
GPS RN NOTES: PATIENT C/O LOWER PAIN BACK. RATES PAIN LEVEL 8/10. TRAMADOL 50MG 1 TAB GIVEN PO PRN ORDERED FOR PAIN AT 2010. WILL CONTINUE TO MONITOR AND REASSESS.
[2020-09-12 20:29] VITALS: BP 130/90
[2020-09-12] MEDS: ATORVASTATIN 10 MG TABLET PO SCH (21:26)
[2020-09-12] MEDS: TRAZODONE 50 MG TABLET PO SCH (21:26)
[2020-09-12] MEDS: OLANZAPINE 10 MG TABLET PO SCH (21:27)
--- NOTE | 2020-09-12 21:35 | NUR ---
GPS RN NOTES: PATIENT C/O OF ITCHINESS. BENADRYL 25MG/10ML GIVEN PO PRN ORDERED AT 2126. WILL CONTINUE TO MONITOR.
--- NOTE | 2020-09-13 06:29 | NUR ---
GPS RN CLOSING NOTES: PATIENT IS SLEEPING COMFORTABLY IN BED. PATIENT SLEPT 6HR THIS SHIFT. PATIENT WAS MED COMPLIANT THIS SHIFT. NO S/S OF DISTRESS. RESPIRATION EVEN AND UNLABORED WITH EQUAL RISE AND FALL OF THE CHEST ON ROOM AIR. ALL PATIENT CARE NEEDS HAVE BEEN MET ANTICIPATED. BED IN LOWEST POSITION AND LOCKED WITH SIDE RAILS UP X2. WILL CONTINUE TO MONITOR FOR SAFETY, MOOD AND BEHAVIOR AND ENDORSE TO AM SHIFT.
[2020-09-13 08:00] VITALS: BP 122/71
[2020-09-13] MEDS: NICOTINE PATCH (14MG) 14 MG PATCH.TD24 TD SCH (08:30)
[2020-09-13] MEDS: ASCORBIC ACID 500 MG TABLET PO SCH (08:31)
[2020-09-13] MEDS: BUPROPION XL 150 MG TAB.ER.24 PO SCH (08:31)
[2020-09-13] MEDS: PAROXETINE HCL 20 MG TABLET PO SCH (08:31)
[2020-09-13] MEDS: busPIRone 5 MG TABLET PO SCH ×3 (08:31→16:19)
[2020-09-13] MEDS: CHOLECALCIFEROL 1,000 UNIT TABLET (VIT D3) PO SCH (08:31)
[2020-09-13] MEDS: GABAPENTIN 300 MG CAPSULE PO SCH ×3 (09:06→16:18)
[2020-09-13] MEDS: TRAMADOL HCL 50 MG TABLET PO PRN ×2 (09:57→18:13)
--- NOTE | 2020-09-13 09:58 | NUR ---
GPS RN NOTES: PATIENT C/O LOWER PAIN BACK. RATES PAIN LEVEL 8/10. TRAMADOL 50MG 1 TAB GIVEN PO PRN ORDERED WILL CONTINUE TO MONITOR AND REASSESS.
[2020-09-13] MEDS: diphenhydrAMINE HCL ELIX 25 MG/10 ML UDC PO PRN ×2 (11:05→19:46)
[2020-09-13] MEDS: hydrOXYzine 10 MG TABLET PO PRN (15:22)
[2020-09-13 16:00] VITALS: BP 125/75
--- NOTE | 2020-09-13 18:13 | NUR ---
GPS RN NOTES: PATIENT C/O LOWER PAIN BACK. RATES PAIN LEVEL 8/10. TRAMADOL 50MG 1 TAB GIVEN PO PRN ORDERED WILL CONTINUE TO MONITOR AND REASSESS.
[2020-09-13 20:29] VITALS: BP 118/95
[2020-09-13] MEDS: TRAZODONE 50 MG TABLET PO SCH (21:25)
[2020-09-13] MEDS: OLANZAPINE 10 MG TABLET PO SCH (21:25)
[2020-09-13] MEDS: ATORVASTATIN 10 MG TABLET PO SCH (21:26)
--- NOTE | 2020-09-13 22:05 | NUR ---
RN note: Patent refused skin assessment.
[2020-09-14 08:00] VITALS: BP 121/73
[2020-09-14] MEDS: PAROXETINE HCL 20 MG TABLET PO SCH (08:32)
[2020-09-14] MEDS: GABAPENTIN 300 MG CAPSULE PO SCH ×3 (08:32→16:10)
[2020-09-14] MEDS: ASCORBIC ACID 500 MG TABLET PO SCH (08:32)
[2020-09-14] MEDS: busPIRone 5 MG TABLET PO SCH ×3 (08:32→16:10)
[2020-09-14] MEDS: CHOLECALCIFEROL 1,000 UNIT TABLET (VIT D3) PO SCH (08:32)
[2020-09-14] MEDS: NICOTINE PATCH (14MG) 14 MG PATCH.TD24 TD SCH (08:32)
[2020-09-14] MEDS: BUPROPION XL 150 MG TAB.ER.24 PO SCH (08:32)
[2020-09-14] MEDS: diphenhydrAMINE HCL ELIX 25 MG/10 ML UDC PO PRN ×2 (10:14→18:01)
[2020-09-14] MEDS: TRAMADOL HCL 50 MG TABLET PO PRN ×2 (11:20→19:47)
[2020-09-14] MEDS: hydrOXYzine 10 MG TABLET PO PRN (13:27)
[2020-09-14 16:00] VITALS: BP 124/65
[2020-09-14 20:02] VITALS: BP 125/69
[2020-09-14] MEDS: OLANZAPINE 10 MG TABLET PO SCH (21:07)
[2020-09-14] MEDS: TRAZODONE 50 MG TABLET PO SCH (21:07)
[2020-09-14] MEDS: ATORVASTATIN 10 MG TABLET PO SCH (21:07)
--- NOTE | 2020-09-15 06:35 | NUR ---
RN NOTES, PATIENT STILL SLEEPING AT THIS TIME, GETTING UP ONLY TO USE THE RESTROOM, WITH ADEQUATE HOURS OF LEEP, NO DISRUPTIVE BEHAVIOR NOTED THROUGHOUT THE SHIFT, NO DISTRESS NOTED DURING THE NIGHT, COMPLIANT WITH MEDICATION AND CARE, WILL ENDORSE CONTINUITY OF CARE TO ONCOMING NURSE
[2020-09-15 08:00] VITALS: BP 120/71
[2020-09-15] MEDS: NICOTINE PATCH (14MG) 14 MG PATCH.TD24 TD SCH ×2 (09:00→09:21)
[2020-09-15] MEDS: busPIRone 5 MG TABLET PO SCH ×3 (09:20→17:58)
[2020-09-15] MEDS: PAROXETINE HCL 20 MG TABLET PO SCH (09:21)
[2020-09-15] MEDS: GABAPENTIN 300 MG CAPSULE PO SCH ×3 (09:21→17:58)
[2020-09-15] MEDS: CHOLECALCIFEROL 1,000 UNIT TABLET (VIT D3) PO SCH (09:21)
[2020-09-15] MEDS: ASCORBIC ACID 500 MG TABLET PO SCH (09:21)
[2020-09-15] MEDS: BUPROPION XL 150 MG TAB.ER.24 PO SCH (09:24)
[2020-09-15] MEDS: diphenhydrAMINE HCL ELIX 25 MG/10 ML UDC PO PRN ×2 (11:07→20:47)
--- NOTE | 2020-09-15 11:08 | NUR ---
given benadryl 25 mg for gen'l itching.
[2020-09-15] MEDS: TRAMADOL HCL 50 MG TABLET PO PRN (15:43)
--- NOTE | 2020-09-15 15:49 | NUR ---
given ultram for back pain.
[2020-09-15 16:00] VITALS: BP 124/74
--- NOTE | 2020-09-15 16:35 | NUR ---
Family Contact: EMILY called the pts mother, Netta ([phone]), and informed her that the pt is going to be discharged to [facility] the following day.
--- NOTE | 2020-09-15 19:30 | NUR ---
GPS RN NOTE report recieved from umu shah rn. Received patient in his room and hallway asking for benadryl for generalized itchiness cooperative with care. No s/s of acute distress noted, denies si/hi . Will continue to monitor q15 min rounds for safety.
[2020-09-15 20:25] VITALS: BP 118/68
[2020-09-15] MEDS: OLANZAPINE 10 MG TABLET PO SCH (20:47)
[2020-09-15] MEDS: ATORVASTATIN 10 MG TABLET PO SCH (20:48)
[2020-09-15] MEDS: TRAZODONE 50 MG TABLET PO SCH (20:49)
[2020-09-16] MEDS: TRAMADOL HCL 50 MG TABLET PO PRN (05:46)
--- NOTE | 2020-09-16 06:28 | NUR ---
COVID TEST PERFORMED THIS AM BILATERAL NARES. SUBMITTED TO LAB.
[2020-09-16 08:00] VITALS: BP 115/70
--- NOTE | 2020-09-16 08:30 | NUR ---
received pt. in rm.no complaints offered.vs stable.skin warm and dry.
[2020-09-16] MEDS: NICOTINE PATCH (14MG) 14 MG PATCH.TD24 TD SCH ×2 (08:52→10:30)
[2020-09-16] MEDS: busPIRone 5 MG TABLET PO SCH ×2 (09:08→13:01)
[2020-09-16] MEDS: PAROXETINE HCL 20 MG TABLET PO SCH (09:09)
[2020-09-16] MEDS: CHOLECALCIFEROL 1,000 UNIT TABLET (VIT D3) PO SCH (09:09)
[2020-09-16] MEDS: GABAPENTIN 300 MG CAPSULE PO SCH ×2 (09:09→13:01)
[2020-09-16] MEDS: ASCORBIC ACID 500 MG TABLET PO SCH (09:09)
[2020-09-16] MEDS: BUPROPION XL 150 MG TAB.ER.24 PO SCH (09:09)
--- NOTE | 2020-09-16 10:17 | NUR ---
Discharge Note: Pt will be discharged to [facility] SNF located at [address] [place] [address]; . Pt will be transported via [facility] (Trip #[id number]) at 1:45pm. Pts mother, Netta ([phone]), was notified of the discharge. Upon discharge, the pt appears to be be in a euthymic mood and presents with a calm affect. Pt appears to be alert and oriented x4 (time, place, self and situation). Pt denies both suicidal and homicidal ideation as well as auditory and visual hallucinations. Pt appears to be ambulatory with a steady gait. Pt appears to be well groomed and appropriately dressed. Pt will continue to be under the care of his psychiatrist, Dr. Minor, located at [address] [facility], [address] [place] [address]; and paste up copy camera operator, Dr Cates, located at [address] [place] [id number]; . The homeless waiver, choice of vendor, and multidisciplinary exit care form was done, printed, signed, and given to the patient.
[2020-09-16] MEDS: diphenhydrAMINE HCL ELIX 25 MG/10 ML UDC PO PRN (10:30)
--- NOTE | 2020-09-16 10:30 | NUR ---
given benadryl for generalized itching.
--- NOTE | 2020-09-16 11:30 | NUR ---
md and psych discharge written.all papers signed.
--- NOTE | 2020-09-16 13:00 | NUR ---
report called to transferring facility by dry charge process attendant.
--- NOTE | 2020-09-16 14:30 | NUR ---
transferring out to [facility],all belongings packed up along with rxs and other papers.pt. denies auditory hallucinations,suicidal ideation or homicidal ideation.report to drivers,taken via ambulance to facility.
== END 2020-09-16 14:30 | DRG 885 ==
LOC: ER 17:24 → GPS 23:26
PROVIDERS: ADMIT Psychiatry & Neurology Psychiatry; ATTEND Nurse Practitioner Acute Care
DX: F25.9 Schizoaffective disorder, unspecified (principal); F39 Unspecified mood [affective] disorder; Z59.0 Homelessness; I10 Essential (primary) hypertension; E78.5 Hyperlipidemia, unspecified; Z73.6 Limitation of activities due to disability; F15.10 Other stimulant abuse, uncomplicated; F12.10 Cannabis abuse, uncomplicated; F29 Unspecified psychosis not due to a substance or known physiological condition; M62.81 Muscle weakness (generalized); F41.9 Anxiety disorder, unspecified; F32.9 Major depressive disorder, single episode, unspecified; F17.210 Nicotine dependence, cigarettes, uncomplicated; Z20.822 Contact with and (suspected) exposure to COVID-19
CPT/HCPCS: 36415; 80048-TC; 80061-TC; 80076-TC; 82962-TC; 85025-TC; 87081-TC; C9803; G0480; J1200; J1630; J2060; J3490; Q0163; Q0177

== ENCOUNTER 2021-01-26 19:04 | Inpatient (IN) | payer MEDICARE, OTHER ==
[~2021-01-26] VITALS: Ht 162.6 cm; Wt 61.7 kg
[~2021-01-26 19:04] MED LIST changes: +ACET-868 PO; +ASCO-352 PO; +BISA10SU11 RC; -BUPR-96 PO; +CHOL100062 PO; +CICL6.6S5 TP; -GABA-534 PO; -LORA-259 PO; +MAGN400O6 PO; +NA P133E RC; -QUET200T PO; -RESTORIL; +TRAM50TA2 PO; +ZINC1CAP2 PO
--- NOTE | 2021-01-26 19:05 | NUR ---
TO ER BED C/O SI WITH PLAN TO CUT WRIST. DENIES HI. ADMITS TO METH USE. PT AAOX4 NO ACUTE DISTRESS NOTED, RESP EVEN AND UNLABORED. PT CALM AND COOPERATIVE AT THIS TIME. PLACE PT ON HOSPITAL GOWN, ALL BELONGINGS REMOVED AND PLACED IN A LOCKED HOSPITAL LOCKER. PENDING ER MD GRAHAM.
--- NOTE | 2021-01-26 19:30 | NUR ---
URINE SAMPLE COLLECTED AND SENT TO LAB.
--- NOTE | 2021-01-26 19:56 | NUR ---
ENTERTAINMENT DANCER AT BEDSIDE FOR BLOOD DRAW.
[2021-01-26 20:01] LABS: BASOPHILS # (AUTO) 0.1 K/uL (0.0-0.2); BASOPHILS % (AUTO) 0.8 % (0.0-2.0); EOSINOPHILS % (AUTO) 2.3 % (0.0-6.0); HEMATOCRIT 43 % (39-51); HEMOGLOBIN 14.8 g/dL (13.5-17.5); LYMPHOCYTES # (AUTO) 2.4 K/uL (0.8-4.8); LYMPHOCYTES % (AUTO) 22.5 % (20.0-44.0); MEAN CORPUSCULAR HGB CONC 34 g/dl (31.0-36.0); MEAN CORPUSCULAR VOLUME 88 fL (80-96); MONOCYTES # (AUTO) 1.2 K/uL (0.1-1.30); MONOCYTES % (AUTO) 11.4 % (2.0-12.0); NEUTROPHILS # (AUTO) 6.7 K/uL (1.8-8.9); PLATELET COUNT (AUTO) 353 K/uL (150-450); WHITE BLOOD COUNT (AUTO) 10.6 K/uL (4.3-11.0)
[2021-01-26 20:12] LABS: CALCIUM, SERUM 9.5 mg/dL (8.5-10.1); CARBON DIOXIDE 28 mmol/L (21-32); CHLORIDE 98 mmol/L (98-107); CREATININE 0.7 mg/dL (0.6-1.3); GLUCOSE 90 mg/dL (74-106); POTASSIUM 3.9 mmol/L (3.5-5.1); SODIUM SERUM 137 mmol/L (136-145); UREA NITROGEN, BLOOD 12 mg/dL (7-18)
[2021-01-26 20:25] LABS: ACETAMINOPHEN < 2 ug/ml (10-30); ALANINE AMINOTRANSFERASE 39 U/L (12-78); ALBUMIN 4.4 g/dL (3.4-5.0); ALCOHOL, BLOOD < 3 mg/dL (0-0); ALKALINE PHOSPHATASE 90 U/L (46-116); ASPARTATE AMINOTRANSFERASE 28 U/L (15-37); BILIRUBIN,DIRECT 0.1 mg/dL (0.0-0.2); BILIRUBIN,TOTAL 0.5 mg/dL (0.2-1.0); TOTAL PROTEIN, SERUM 8.1 g/dL (6.4-8.2)
--- NOTE | 2021-01-26 20:33 | NUR ---
COVID SWAB COLLECTED AND SENT TO LAB
[2021-01-26 20:47] LABS: BILIRUBIN,URINE Negative (NEGATIVE); COLOR,URINE YELLOW (YELLOW); LEUKOCYTE ESTERASE ,URINE Negative (NEGATIVE); NITRITE, URINE Negative (NEGATIVE); PROTEIN,URINE Negative (NEGATIVE); UGLUCOSE Negative (NEGATIVE); UROBILINOGEN,URINE 0.2 EU/dL (0.2)
--- NOTE | 2021-01-26 22:01 | NUR ---
CALLED CRISIS MIKEY WILL BE HERE SHORTLY
--- NOTE | 2021-01-26 23:02 | NUR ---
HINDUISM IMPROVEMENT LEADER HERE FOR PSYCH EVAL.
[2021-01-26] MEDS ORDERED: OLANZAPINE 5 MG TABLET PO ONE (23:30)
--- NOTE | 2021-01-26 23:47 | NUR ---
amanda 212
[2021-01-27] MEDS ORDERED: OLANZAPINE 5 MG TABLET ONE (00:06)
--- NOTE | 2021-01-27 00:13 | NUR ---
REPORT CALLED TO [facility]. WILL TRANSPORT PT TO ROOM 212.
--- NOTE | 2021-01-27 01:13 | NUR ---
RN NOTE PATIENT'S BLOOD SUGAR IS 166 MG/DL AT THIS TIME.
[2021-01-27 01:17] VITALS: BP 115/73
[2021-01-27] MEDS ORDERED: BLOOD SUGAR DIAGNOSTIC 1 EACH STRIP IN ONE (01:30)
[2021-01-27] MEDS ORDERED: MAG HYDROX/AL HYDROX/SIMETH 30 ML UDC PO PRN (01:30)
[2021-01-27] MEDS ORDERED: MAGNESIUM HYDROXIDE 30 ML UDC PO PRN ×2 (01:30→04:00)
--- NOTE | 2021-01-27 02:00 | NUR ---
RN NOTE PATIENT HAD SNACK & JUICE, TOLERATED WELL. WILL CONTINUE TO MONITOR.
--- NOTE | 2021-01-27 02:11 | NUR ---
GPS SOLUTION MAKER NOTES: RECEIVED PATIENT FROM ER. PATIENT ARRIVED THIS UNIT AT 0103 ON A STRETCHER WITH AN ER ESCORT. PATIENT IS ON A 5150 HOLD FOR DTS/GD. HOLD WAS PLACED ON 01/26/21 @ 2325. PER HOLD, PATIENT STATED HE'S BEEN HAVING SUICIDAL THOUGHTS OF CUTTING HIS WRIST, AND HAS NOT BEEN EATING OR SLEEPING IN THE PAST 3-4 DAYS. PATIENT IS HOMELESS, AND ALSO STATES HE HAS NOT BEEN TAKING HIS MEDICATIONS. UPON FACE TO FACE EVALUATION, PATIENT IS ALERT AND ORIENTED X3, APPEARS DEPRESSED AND TIRED, DISHEVELED, COOPERATIVE, PASSIVE, GUARDED. TOLD STAFF, HE WANTS TO SLEEP. PATIENT [id number]/DL. SKIN IS INTACT. PATIENT REFUSED TO SIGN ALL ADMISSION PAPER WORKS. PATIENT DENIES SI AT THIS TIME. PATIENT HAS NO S/S OF DISTRESS AND NO C/O OF PAIN AT THIS TIME. RESPIRATION EVEN AND UNLABORED WITH EQUAL RISE AND FALL OF THE CHEST, ON ROOM AIR. REFUSED PNEUMONIA VACCINATION. PER PATIENT, HE HAD HIS FIRST SHOT OF PFIZER COVID VACCINE IN OCTOBER BUT DID NOT GET A SECOND SHOT. PATIENT ADVISED OF HIS HOLD AND PATIENT RIGHT HANDBOOK AND A GUIDE TO PRESCRIPTION MEDICATIONS BOOKLET GIVEN. PATIENT IS UNDER THE PSYCHIATRIC CARE OF DR LAMBERT AND MEDICAL CARE OF DR VELAZQUEZ. PATIENT BELONGINGS WERE INVENTORIED AND CHECKED FOR CONTRABAND. ALL PATIENT CARE NEEDS HAVE BEEN MET AT THIS TIME. PATIENT IS CURRENTLY SLEEPING. BED IS IN LOWEST POSITION AND LOCKED, CALL MACIAS WITHIN REACH. WILL CONTINUE TO MONITOR Q15 FOR SAFETY, MOOD AND BEHAVIOR.
[2021-01-27] MEDS ORDERED: BISACODYL SUPP (10 MG) 10 MG/SUPP.RECT SUPP.RECT RC PRN (04:00)
[2021-01-27] MEDS ORDERED: ACETAMINOPHEN 325 MG TABLET PO PRN (04:00)
[2021-01-27] MEDS ORDERED: NA PHOS,M-B/NA PHOS,DI-BA 1 EA ENEMA RC PRN (04:00)
--- NOTE | 2021-01-27 04:15 | NUR ---
RN NOTE: MED RECON DONE MED RECON DONE BY DR. VELAZQUEZ.
[2021-01-27 08:00] VITALS: BP 100/52
[2021-01-27] MEDS: ASCORBIC ACID 500 MG TABLET PO SCH (08:31)
[2021-01-27] MEDS: CHOLECALCIFEROL 1,000 UNIT TABLET (VIT D3) PO SCH (08:31)
[2021-01-27] MEDS: ZINC SULFATE 220 MG CAPSULE PO SCH (08:31)
--- NOTE | 2021-01-27 10:15 | NUR ---
PT'S MOTHER CONTACTED [facility] AND WAS INFORMED OF PATIENTS STATUS WITH GOOD UNDERSTANDING.
[2021-01-27] MEDS: NICOTINE PATCH (7MG) 7 MG PATCH.TD24 TD SCH (12:11)
[2021-01-27] MEDS: ACETAMINOPHEN 325 MG TABLET PO PRN (13:25)
--- NOTE | 2021-01-27 13:25 | NUR ---
RN NOTE PATIENT COMPLAINS OF LOWER BACK PAIN OF 3. TYLENOL ADMINISTERED. WILL CONTINUE TO MONITOR.
--- NOTE | 2021-01-27 13:34 | NUR ---
CONTACTED DR DIMAS HE IS COVERING FOR DR LAMBERT, WITH REGARDS TO PT BEING A NEW ADMISSION. AWAITING FOR CALL BACK. CHARGE NURSE AWARE.
[2021-01-27 16:00] VITALS: BP 100/55
[2021-01-27] MEDS ORDERED: IBUPROFEN 600 MG TABLET PO PRN (19:30)
[2021-01-27 19:48] VITALS: BP 102/57
[2021-01-27] MEDS: LORAZEPAM 0.5 MG TABLET PO PRN (20:36)
[2021-01-27] MEDS: TEMAZEPAM 7.5 MG CAPSULE PO PRN (21:14)
[2021-01-28 07:45] LABS: ALBUMIN 3.6 g/dL (3.4-5.0); BILIRUBIN,TOTAL 0.2 mg/dL (0.2-1.0); CALCIUM, SERUM 8.4 mg/dL (8.5-10.1); CREATININE 0.7 mg/dL (0.6-1.3); POTASSIUM 4.6 mmol/L (3.5-5.1); TOTAL PROTEIN, SERUM 6.8 g/dL (6.4-8.2)
[2021-01-28 07:50] LABS: CHOLESTEROL 226 mg/dL (<200); HDL CHOLESTEROL 92 mg/dL (40-60); LDL 126 mg/dL (0-99); TRIGLYCERIDES 69 mg/dL (30-150)
[2021-01-28 08:00] VITALS: BP 100/62
[2021-01-28] MEDS: ZINC SULFATE 220 MG CAPSULE PO SCH (08:52)
[2021-01-28] MEDS: NICOTINE PATCH (7MG) 7 MG PATCH.TD24 TD SCH (08:52)
[2021-01-28] MEDS: CHOLECALCIFEROL 1,000 UNIT TABLET (VIT D3) PO SCH (08:52)
[2021-01-28] MEDS: LORAZEPAM 0.5 MG TABLET PO PRN ×2 (08:52→15:52)
[2021-01-28] MEDS: ASCORBIC ACID 500 MG TABLET PO SCH (08:52)
[2021-01-28] MEDS ORDERED: FEXOFENADINE HCL (60 MG) 60 MG TABLET PO ONE (13:00)
[2021-01-28] MEDS: busPIRone 5 MG TABLET PO SCH ×2 (14:48→18:18)
--- NOTE | 2021-01-28 15:54 | NUR ---
GPS RN NOTE ATIVAN ADMINISTERED PT C/O ANXIETY. WILL CONTINUE TO MONITOR.
[2021-01-28 16:00] VITALS: BP 107/66
--- NOTE | 2021-01-28 19:30 | NUR ---
GPS RN NOTE, RECEIVED PATIENT AWAKE AND IN BED, NO S/S OR COMPLAINTS OF PAIN AT THIS TIME. PATIENT IS DISPLAYING NO S/S OF APPARENT DISTRESS AT THIS TIME. PATIENT BREATHING IS UNLABORED WITH EQUAL RISE AND FALL OF THE CHEST. PATIENT IS ALERT AND ORIENTED X 3 ON ROOM AIR WITH A SPO2 96%. PATIENT IS COMPLIANT WITH MEDICATIONS, DEPRESSED, ANXIOUS AT TIMES, AND COOPERATIVE. PATIENT DENIES SUICIDAL AND HOMICIDAL IDEATIONS AT THIS TIME. PATIENT ASSISTED WITH TURNING AND REPOSITIONING Q2HR AND PRN FOR COMFORT AND CIRCULATION. PATIENT HAS NO NEEDS AT THIS TIME. PATIENT EDUCATED ON THE USE OF THE CALL MACIAS. PATIENT BED SIDE RAILS UP X 2 FOR SAFETY. PATIENT BED IS LOCKED, LOW, WITH BED ALARM ON. WILL CONTINUE TO MONITOR THIS PATIENT Q15 MINUTES WITH THE HELP OF STAFF TO MAINTAIN SAFETY.
[2021-01-28 20:36] VITALS: BP 114/73
[2021-01-28] MEDS: MIRTAZAPINE 15 MG TABLET PO SCH (21:38)
[2021-01-28] MEDS ORDERED: OLANZAPINE 2.5 MG TABLET PO SCH (22:00)
[2021-01-29 08:00] VITALS: BP 123/73
[2021-01-29] MEDS: ZINC SULFATE 220 MG CAPSULE PO SCH (08:13)
[2021-01-29] MEDS: CHOLECALCIFEROL 1,000 UNIT TABLET (VIT D3) PO SCH (08:13)
[2021-01-29] MEDS: ASCORBIC ACID 500 MG TABLET PO SCH (08:13)
[2021-01-29] MEDS: busPIRone 5 MG TABLET PO SCH ×3 (08:14→16:21)
[2021-01-29] MEDS: NICOTINE PATCH (7MG) 7 MG PATCH.TD24 TD SCH (08:58)
[2021-01-29] MEDS ORDERED: FEXOFENADINE HCL (60 MG) 60 MG TABLET PO ONE (09:00)
[2021-01-29] MEDS: LORAZEPAM 0.5 MG TABLET PO PRN ×2 (10:46→20:35)
--- NOTE | 2021-01-29 10:46 | NUR ---
Pt. is feeling anxious and asking for ativan po
[2021-01-29 16:00] VITALS: BP 119/68
--- NOTE | 2021-01-29 16:23 | NUR ---
Psychosocial Note: I, Mayra Engel MARBLE COPER, attest to the patients previous psychosocial information dated on 12/24/2020. Update on Events leading to Admission and Discharge Plan: Pt. has returned to the geriatric psychiatric unit within a short period of time of his previous discharge date (09/16/2020) to [facility]F located at [address] [place] [address]; . Pt. is an 55-year-old male who was readmitted to [facility] on 01/27/21 on a 5150 hold for danger to self and grave disability. Per psychiatric hold, the pt. came to [facility] ER and reported suicidal thoughts due to medication non-compliance. Per hold, pt. stated he had plans to cut his wrist. Per hold, pt. reported that he left his previous living arrangement, stopped taking medications and has not eaten in days. Per hold, pt. has hx. of Bipolar disorder and has been prescribed Zyprexa and Wellbutrin. Upon face to face assessment, the pt. is A&O X4 and appears unkempt. The pt.s mood is depressed with flat affect. Pt. has pressured speech, makes good eye contact and remained & cooperative throughout assessment. Pt. stated he does not remember where he was last residing and is guarded. Pt. did not disclose why he left last residence.Pt. stated he ran out of medication and was unable to continue taking it. Pt. has poor insight and judgment. EMILY discussed initial discharge plan with pt. and he stated he would like SNF placement. Pt. stated he did not want any family involvement during his Tx at [facility]. EMILY will continue to work with the pt. and the MD to form a safe & appropriate discharge plan.
[2021-01-29 20:12] VITALS: BP 104/70
--- NOTE | 2021-01-29 20:35 | NUR ---
GPS RN NOTE, PATIENT HAS A COMPLAINT OF FEELING ANXIOUS AND IS REQUESTING ATIVAN AT THIS TIME. PATIENT VITAL SIGNS ARE STABLE. GAVE ATIVAN 0.5MG MG PO Q6HR PRN ORDERED. WILL REASSESS FOR ANXIETY AND I WILL CONTINUE TO MONITOR THIS PATIENT.
[2021-01-29] MEDS: OLANZAPINE 10 MG TABLET PO SCH (21:59)
[2021-01-29] MEDS: MIRTAZAPINE 15 MG TABLET PO SCH (21:59)
[2021-01-30 08:00] VITALS: BP 111/66
[2021-01-30] MEDS: ZINC SULFATE 220 MG CAPSULE PO SCH (08:14)
[2021-01-30] MEDS: busPIRone 5 MG TABLET PO SCH ×3 (08:14→16:31)
[2021-01-30] MEDS: NICOTINE PATCH (7MG) 7 MG PATCH.TD24 TD SCH (08:14)
[2021-01-30] MEDS: CHOLECALCIFEROL 1,000 UNIT TABLET (VIT D3) PO SCH (08:14)
[2021-01-30] MEDS: ASCORBIC ACID 500 MG TABLET PO SCH (08:14)
[2021-01-30 16:00] VITALS: BP 112/78
--- NOTE | 2021-01-30 19:30 | NUR ---
GPS RN NOTE, RECEIVED PATIENT AWAKE AND IN BED, NO S/S OR COMPLAINTS OF PAIN AT THIS TIME. PATIENT IS DISPLAYING NO S/S OF APPARENT DISTRESS AT THIS TIME. PATIENT BREATHING IS UNLABORED WITH EQUAL RISE AND FALL OF THE CHEST. PATIENT IS ALERT AND ORIENTED X 3 ON ROOM AIR WITH A SPO2 95%. PATIENT IS COMPLIANT WITH MEDICATIONS, ANXIOUS AT TIMES, MAKES NEEDS KNOWN, AND IS COOPERATIVE. PATIENT DENIES SUICIDAL AND HOMICIDAL IDEATIONS AT THIS TIME. PATIENT ASSISTED WITH TURNING AND REPOSITIONING Q2HR AND PRN FOR COMFORT AND CIRCULATION. PATIENT HAS NO NEEDS AT THIS TIME. PATIENT EDUCATED ON THE USE OF THE CALL MACIAS. PATIENT BED SIDE RAILS UP X 2 FOR SAFETY. PATIENT BED IS LOCKED, LOW, WITH BED ALARM ON. WILL CONTINUE TO MONITOR THIS PATIENT Q15 MINUTES WITH THE HELP OF STAFF TO MAINTAIN SAFETY.
[2021-01-30 20:02] VITALS: BP 113/66
[2021-01-30] MEDS: LORAZEPAM 0.5 MG TABLET PO PRN (20:16)
--- NOTE | 2021-01-30 20:17 | NUR ---
GPS RN NOTE, PATIENT HAS A COMPLAINT OF FEELING ANXIOUS AND IS REQUESTING ATIVAN AT THIS TIME. PATIENT VITAL SIGNS ARE STABLE. GAVE ATIVAN 0.5MG PO Q6HR PRN ORDERED. WILL REASSESS FOR ANXIETY AND I WILL CONTINUE TO MONITOR THIS PATIENT WITH THE HELP OF STAFF.
[2021-01-30] MEDS: OLANZAPINE 10 MG TABLET PO SCH (22:09)
[2021-01-30] MEDS: MIRTAZAPINE 15 MG TABLET PO SCH (22:09)
[2021-01-31 08:00] VITALS: BP 101/58
[2021-01-31] MEDS: ASCORBIC ACID 500 MG TABLET PO SCH (09:12)
[2021-01-31] MEDS: NICOTINE PATCH (7MG) 7 MG PATCH.TD24 TD SCH (09:12)
[2021-01-31] MEDS: ZINC SULFATE 220 MG CAPSULE PO SCH (09:12)
[2021-01-31] MEDS: busPIRone 5 MG TABLET PO SCH ×3 (09:12→16:47)
[2021-01-31] MEDS: CHOLECALCIFEROL 1,000 UNIT TABLET (VIT D3) PO SCH (09:12)
[2021-01-31] MEDS: LORAZEPAM 0.5 MG TABLET PO PRN ×2 (09:57→18:51)
--- NOTE | 2021-01-31 09:58 | NUR ---
RNMoniqueCO: PT C/O ANXIETY, ATIVAN WAS GIVEN PO.
[2021-01-31] MEDS: ACETAMINOPHEN 325 MG TABLET PO PRN (11:14)
[2021-01-31 16:00] VITALS: BP 104/70
--- NOTE | 2021-01-31 18:51 | NUR ---
RN-CO: ATIVAN 0.5 MG PO FOR ANXIETY GIVEN.
[2021-01-31 20:00] VITALS: BP 110/62
[2021-01-31] MEDS: OLANZAPINE 10 MG TABLET PO SCH (21:24)
[2021-01-31] MEDS: MIRTAZAPINE 15 MG TABLET PO SCH (21:24)
[2021-02-01 08:10] VITALS: BP 105/68
[2021-02-01] MEDS: CHOLECALCIFEROL 1,000 UNIT TABLET (VIT D3) PO SCH (08:23)
[2021-02-01] MEDS: busPIRone 5 MG TABLET PO SCH ×3 (08:23→16:12)
[2021-02-01] MEDS: ASCORBIC ACID 500 MG TABLET PO SCH (08:23)
[2021-02-01] MEDS: NICOTINE PATCH (7MG) 7 MG PATCH.TD24 TD SCH (08:23)
[2021-02-01] MEDS: ZINC SULFATE 220 MG CAPSULE PO SCH (08:23)
--- NOTE | 2021-02-01 09:00 | NUR ---
RN NOTE- UNCHANGED PATIENT IS COMPLIANT WITH MEDICATIONS, DENIED PAIN AND DISCOMFORT, VISIBLE IN THE UNIT. WILL MONITOR AND NOTIFY MD. HE DENIED SI/VH/AH.
[2021-02-01] MEDS: LORAZEPAM 0.5 MG TABLET PO PRN ×2 (09:10→15:45)
--- NOTE | 2021-02-01 09:10 | NUR ---
RN NOTE- RESTLESSNESS AND ANXIETY. ATIVAN 0.5 MG ADMINISTERED.
--- NOTE | 2021-02-01 10:30 | NUR ---
RN NOTE- SIVA EFFECTIVE
[2021-02-01] MEDS: OLANZAPINE 2.5 MG TABLET PO SCH (12:06)
[2021-02-01] MEDS: ACETAMINOPHEN 325 MG TABLET PO PRN ×2 (12:07→20:32)
--- NOTE | 2021-02-01 12:07 | NUR ---
RN- C/O GENERALIZED ACHES PAIN. TYLENOL 650 [facility] GIVEN
--- NOTE | 2021-02-01 13:30 | NUR ---
RN NOTE- TYLENOL EFFECTIVE
--- NOTE | 2021-02-01 15:45 | NUR ---
RN NOTE- GENERAL RESTLESSNESS AND ANXIETY. ATIVAN 0.5 MG GIVEN
[2021-02-01 16:19] VITALS: BP 107/64
--- NOTE | 2021-02-01 17:01 | NUR ---
RN NOTE- SIVA EFFECTIVE
[2021-02-01 20:00] VITALS: BP 126/70
[2021-02-01] MEDS: OLANZAPINE 10 MG TABLET PO SCH (21:29)
[2021-02-01] MEDS: MIRTAZAPINE 15 MG TABLET PO SCH (21:30)
[2021-02-01] MEDS: TEMAZEPAM 7.5 MG CAPSULE PO PRN (21:30)
--- NOTE | 2021-02-02 04:51 | NUR ---
CLOSING NOTES: ALERT AND ORIENTATED X4 COOPERATIVE. SLEPT SOUNDLY THRU THE NIGHT RESTORIL EFFECTIVE
[2021-02-02 08:00] VITALS: BP 97/66
[2021-02-02] MEDS: CHOLECALCIFEROL 1,000 UNIT TABLET (VIT D3) PO SCH (08:28)
[2021-02-02] MEDS: ASCORBIC ACID 500 MG TABLET PO SCH (08:28)
[2021-02-02] MEDS: NICOTINE PATCH (7MG) 7 MG PATCH.TD24 TD SCH (08:28)
[2021-02-02] MEDS: ZINC SULFATE 220 MG CAPSULE PO SCH (08:28)
[2021-02-02] MEDS: busPIRone 5 MG TABLET PO SCH ×3 (08:28→16:55)
--- NOTE | 2021-02-02 09:00 | NUR ---
RN NOTE- PATIENT AMBULATORY IN HALLS IS COMPLIANT WITH MEDICATIONS, DENIES PAIN, VISIBLE IN THE UNIT. I WILL MONITOR AND NOTIFY MD. HE DENIED SI/VH/AH.
[2021-02-02] MEDS: LORAZEPAM 0.5 MG TABLET PO PRN ×2 (09:30→16:03)
--- NOTE | 2021-02-02 09:30 | NUR ---
RN NOTE- PT ANXIOUS. ATIVAN 0.5 MG GIVEN
[2021-02-02] MEDS: OLANZAPINE 2.5 MG TABLET PO SCH (12:13)
--- NOTE | 2021-02-02 12:50 | NUR ---
Probable Cause Hearing: Pt's 5250 has been upheld for grave disability.
[2021-02-02] MEDS: ACETAMINOPHEN 325 MG TABLET PO PRN (12:53)
--- NOTE | 2021-02-02 12:53 | NUR ---
RN NOTE- C/O HEADACHE. TYLENOL 650 MG GIVEN
[2021-02-02 16:00] VITALS: BP 115/69
--- NOTE | 2021-02-02 16:03 | NUR ---
RN NOTE- C/O ANXIETY. ATIVAN 0.5 MG GIVEN
[2021-02-02 20:00] VITALS: BP 111/68
[2021-02-02] MEDS: OLANZAPINE 10 MG TABLET PO SCH (21:28)
[2021-02-02] MEDS: TEMAZEPAM 7.5 MG CAPSULE PO PRN (21:29)
[2021-02-02] MEDS: MIRTAZAPINE 15 MG TABLET PO SCH (21:29)
--- NOTE | 2021-02-03 04:40 | NUR ---
CLOSING NOTES PATIENT IS ALERT AND ORIENTED X2 WITH STEADY GAIT. MEDICINE COMPLIANT .
[2021-02-03 08:00] VITALS: BP 111/62
[2021-02-03] MEDS: ASCORBIC ACID 500 MG TABLET PO SCH (08:09)
[2021-02-03] MEDS: busPIRone 5 MG TABLET PO SCH ×3 (08:09→16:17)
[2021-02-03] MEDS: CHOLECALCIFEROL 1,000 UNIT TABLET (VIT D3) PO SCH (08:09)
[2021-02-03] MEDS: NICOTINE PATCH (7MG) 7 MG PATCH.TD24 TD SCH (08:09)
[2021-02-03] MEDS: ZINC SULFATE 220 MG CAPSULE PO SCH (08:09)
[2021-02-03] MEDS: LORAZEPAM 0.5 MG TABLET PO PRN (09:24)
--- NOTE | 2021-02-03 09:26 | NUR ---
RN-CO: PATIENT REQUESTED FOR ATIVAN FOR ANXIETY.
[2021-02-03] MEDS: ACETAMINOPHEN 325 MG TABLET PO PRN (10:26)
--- NOTE | 2021-02-03 10:27 | NUR ---
RN-CO: TYLENOL GIVEN FOR C/O LOWER BACK PAIN.
--- NOTE | 2021-02-03 10:30 | NUR ---
SNF Referral: SW faxed clinicals to [facility] (fax: [phone]) and [facility] (fax: [phone]), for review.
--- NOTE | 2021-02-03 12:32 | NUR ---
SNF Referral Update: Pt has been accepted to [facility] ([address], [place] [address]; ph: [phone] fax: [phone]). SW was instructed to fax clinicals to the facility prior to D/C.
[2021-02-03] MEDS: OLANZAPINE 2.5 MG TABLET PO SCH (13:35)
[2021-02-03 16:00] VITALS: BP 118/70
[2021-02-03] MEDS: clonazePAM 0.5 MG TABLET PO PRN (16:39)
--- NOTE | 2021-02-03 16:39 | NUR ---
RN-CO: KLONOPIN 0.5 MG PO GIVEN FOR C/O RESTLESSNESS AND ANXIETY.
[2021-02-03] MEDS: MIRTAZAPINE 15 MG TABLET PO SCH (21:00)
[2021-02-03] MEDS: OLANZAPINE 10 MG TABLET PO SCH (21:00)
[2021-02-03] MEDS: TEMAZEPAM 7.5 MG CAPSULE PO PRN (21:00)
[2021-02-03 21:16] VITALS: BP 103/67
[2021-02-04 08:00] VITALS: BP 129/65
[2021-02-04] MEDS: ZINC SULFATE 220 MG CAPSULE PO SCH (08:14)
[2021-02-04] MEDS: ASCORBIC ACID 500 MG TABLET PO SCH (08:14)
[2021-02-04] MEDS: busPIRone 5 MG TABLET PO SCH ×3 (08:15→17:02)
[2021-02-04] MEDS: NICOTINE PATCH (7MG) 7 MG PATCH.TD24 TD SCH (08:15)
[2021-02-04] MEDS: CHOLECALCIFEROL 1,000 UNIT TABLET (VIT D3) PO SCH (08:15)
[2021-02-04] MEDS: clonazePAM 0.5 MG TABLET PO PRN ×2 (10:03→16:10)
--- NOTE | 2021-02-04 10:26 | NUR ---
SNF Correspondence: SW received a call from Martha at [facility] requesting for SW to email her the pt's COVID vaccination card to [email or web address]. SS will f/u. Pt has been accepted to the facility.
--- NOTE | 2021-02-04 11:14 | NUR ---
SNF Referral Update: Pt has been accepted to [facility] (ph: [phone]).
[2021-02-04] MEDS: OLANZAPINE 2.5 MG TABLET PO SCH (12:06)
[2021-02-04] MEDS: ACETAMINOPHEN 325 MG TABLET PO PRN (13:40)
[2021-02-04 16:00] VITALS: BP 102/65
[2021-02-04 20:00] VITALS: BP 104/61
[2021-02-04] MEDS: MIRTAZAPINE 15 MG TABLET PO SCH (21:26)
[2021-02-04] MEDS: OLANZAPINE 10 MG TABLET PO SCH (21:26)
[2021-02-04] MEDS: TEMAZEPAM 7.5 MG CAPSULE PO PRN (22:10)
--- NOTE | 2021-02-04 22:11 | NUR ---
GPS-RN NOTES: INSOMNIA PATIENT C/O INABILITY TO SLEEP. PRN RESTORIL 7.5MG PO ORDERED PER PT'S REQUEST. WILL CONTINUE TO MONITOR.
[2021-02-05] MEDS: clonazePAM 0.5 MG TABLET PO PRN ×4 (03:01→20:13)
--- NOTE | 2021-02-05 03:02 | NUR ---
RN NOTES: ANXIETY PT. C/O FEELING ANXIOUS , RESTLESS KLONOPIN 0.5 MG PO PRN GIVEN , WILL CONTINUE TO MONITOR.
[2021-02-05 08:00] VITALS: BP 110/76
[2021-02-05] MEDS: NICOTINE PATCH (7MG) 7 MG PATCH.TD24 TD SCH (08:32)
[2021-02-05] MEDS: ZINC SULFATE 220 MG CAPSULE PO SCH (08:32)
[2021-02-05] MEDS: ASCORBIC ACID 500 MG TABLET PO SCH (08:32)
[2021-02-05] MEDS: CHOLECALCIFEROL 1,000 UNIT TABLET (VIT D3) PO SCH (08:32)
[2021-02-05] MEDS: busPIRone 5 MG TABLET PO SCH ×3 (08:32→16:36)
--- NOTE | 2021-02-05 09:38 | NUR ---
RECEIVED PATIENT WALKING IN HALLWAY, NO ACUTE DISTRESS NOTED. APPEARS DEPRESSED, ANXIOUS , EASILY AGITATED FLAT AFFECT, UNKEMPT, WITHDRAWN, DENIES SI HI PASSIVE, ISOLATIVE. NO VERBALIZATION OF THOUGHTS AND FEELINGS. VERBALIZATION OF FEELINGS ENCOURAGED. SAFETY PRECAUTIONS IN PLACE. WILL CONTINUE TO MONITOR Q15 FOR SAFETY, MOOD AND BEHAVIOR
[2021-02-05] MEDS: TRAMADOL HCL 50 MG TABLET PO PRN ×2 (11:39→17:12)
[2021-02-05] MEDS: OLANZAPINE 2.5 MG TABLET PO SCH (12:09)
[2021-02-05 16:00] VITALS: BP 114/70
--- NOTE | 2021-02-05 17:18 | NUR ---
RN NOTE PT DROPPED 1 PILL OF BUSPAR ON GROUND. PILL CONTAMINATED. PULLED 1 BUSPAR PILL FROM [facility]. NOTIFIED PHARMACY AND INFORMED THEM OF RN NOTE ABOUT EVENT. WILL CONTINUE TO MONITOR.
--- NOTE | 2021-02-05 18:09 | NUR ---
RN CLOSING NOTE PT RESTING IN BED COMFORTABLY. COOPERATIVE. DISHEVELED APPEARANCE. NEEDY. DENIES ANY SI/HI/AVH. MED COMPLIANT. SAFETY PRECAUTIONS IN PLACE. Q15 MINUTE CHECKS SIGNED. WILL GIVE REPORT TO NIGHT NURSE FOR KG.
--- NOTE | 2021-02-05 20:15 | NUR ---
RN NOTES : ANXIETY PT. C/O FEELING ANXIOUS KLONOPIN 0.5 MG PO PRN GIVEN PER PT. REQUEST ,PACING IN HALLWAY, WILL CONTINUE TO MONITOR
[2021-02-05 20:31] VITALS: BP 123/68
[2021-02-05] MEDS: OLANZAPINE 10 MG TABLET PO SCH (21:42)
[2021-02-05] MEDS: MIRTAZAPINE 15 MG TABLET PO SCH (21:42)
[2021-02-06] MEDS: TRAMADOL HCL 50 MG TABLET PO PRN ×3 (00:43→17:51)
[2021-02-06 08:00] VITALS: BP 100/67
[2021-02-06] MEDS: busPIRone 5 MG TABLET PO SCH ×3 (08:44→17:51)
[2021-02-06] MEDS: ZINC SULFATE 220 MG CAPSULE PO SCH (08:44)
[2021-02-06] MEDS: CHOLECALCIFEROL 1,000 UNIT TABLET (VIT D3) PO SCH (08:44)
[2021-02-06] MEDS: NICOTINE PATCH (7MG) 7 MG PATCH.TD24 TD SCH (08:44)
[2021-02-06] MEDS: ASCORBIC ACID 500 MG TABLET PO SCH (08:44)
[2021-02-06] MEDS: OLANZAPINE 2.5 MG TABLET PO SCH (13:50)
[2021-02-06] MEDS: clonazePAM 0.5 MG TABLET PO PRN ×2 (13:50→22:18)
[2021-02-06 16:00] VITALS: BP 102/61
[2021-02-06 20:00] VITALS: BP 110/50
[2021-02-06 20:17] VITALS: BP 110/47
[2021-02-06] MEDS: OLANZAPINE 10 MG TABLET PO SCH (21:17)
[2021-02-06] MEDS: MIRTAZAPINE 15 MG TABLET PO SCH (21:17)
--- NOTE | 2021-02-06 22:19 | NUR ---
RN NOTES: WALKING IN THE HALLWAY AND UNABLE TO SLEEP, HE ASKED FOR HIS MEDICATION FOR SLEEP.GIVEN PER PATIENT REQUEST. -ON PHARMACOLOGIC INTERVENTION RENDERED-REDIRECTION DONE.
[2021-02-07] MEDS: TRAMADOL HCL 50 MG TABLET PO PRN ×3 (04:50→20:01)
--- NOTE | 2021-02-07 04:52 | NUR ---
RN NOTES: ABLE TO SLEEP AND REST, AWAKE, HE PEE, WALK AROUND AND REQUEST FOR HIS PAIN MEDICATION, COMPLAINED OF GENERALIZED PAIN 8/10, GIVEN PER PATIENT REQUEST, NON PHARMACOLOGIC INTERVENTION RENDERED SUCH DIM LIT AND ENCOURAGE BREATHING EXERCISE.
--- NOTE | 2021-02-07 06:52 | NUR ---
RN NOTES: TAKING A NAP AFTER PAIN MEDICATION WAS GIVEN, NO SIGN OF RESTLESSNESS,NO SIGN OF ANXIETY.KEPT ON CLOSE WATCH AND FREQUENT VISUAL CHECK. ENDORSED FOR CONTINUITY OF CARE.
[2021-02-07 08:00] VITALS: BP 114/73
[2021-02-07] MEDS: ZINC SULFATE 220 MG CAPSULE PO SCH (08:25)
[2021-02-07] MEDS: clonazePAM 0.5 MG TABLET PO PRN ×2 (08:25→15:48)
[2021-02-07] MEDS: ASCORBIC ACID 500 MG TABLET PO SCH (08:25)
[2021-02-07] MEDS: NICOTINE PATCH (7MG) 7 MG PATCH.TD24 TD SCH (08:26)
[2021-02-07] MEDS: CHOLECALCIFEROL 1,000 UNIT TABLET (VIT D3) PO SCH (08:26)
[2021-02-07] MEDS: busPIRone 5 MG TABLET PO SCH ×3 (08:27→16:00)
[2021-02-07] MEDS: OLANZAPINE 2.5 MG TABLET PO SCH (12:16)
--- NOTE | 2021-02-07 13:51 | NUR ---
GPS RN NOTE: PT C/O PAIN TRAMADOL GIVEN WILL MONITOR
[2021-02-07 16:00] VITALS: BP 109/64
--- NOTE | 2021-02-07 20:02 | NUR ---
GPS-RN NOTES: PATIENT C/O GENERALIZED PAIN ON A PAIN SCALE OF 8/10. PRN TRAMADOL 50MG PO GIVEN. WILL CONTINUE TO MONITOR AND REASSESS.
[2021-02-07 20:21] VITALS: BP 119/66
[2021-02-07] MEDS: MIRTAZAPINE 15 MG TABLET PO SCH (21:05)
[2021-02-07] MEDS: OLANZAPINE 10 MG TABLET PO SCH (21:05)
[2021-02-07] MEDS: TEMAZEPAM 7.5 MG CAPSULE PO PRN (22:38)
--- NOTE | 2021-02-07 22:38 | NUR ---
GPS-RN NOTES: INSOMNIA PATIENT C/O INABILITY TO SLEEP. PRN RESTORIL 7.5MG PO GIVEN ORDERED PER PT'S REQUEST. WILL CONTINUE TO MONITOR.
[2021-02-08] MEDS: TRAMADOL HCL 50 MG TABLET PO PRN ×3 (06:15→20:01)
[2021-02-08 08:00] VITALS: BP 109/73
[2021-02-08] MEDS: busPIRone 5 MG TABLET PO SCH ×3 (08:30→16:51)
[2021-02-08] MEDS: ZINC SULFATE 220 MG CAPSULE PO SCH (08:30)
[2021-02-08] MEDS: ASCORBIC ACID 500 MG TABLET PO SCH (08:30)
[2021-02-08] MEDS: NICOTINE PATCH (7MG) 7 MG PATCH.TD24 TD SCH (08:30)
[2021-02-08] MEDS: CHOLECALCIFEROL 1,000 UNIT TABLET (VIT D3) PO SCH (08:30)
[2021-02-08] MEDS: clonazePAM 0.5 MG TABLET PO PRN ×2 (09:41→15:38)
--- NOTE | 2021-02-08 09:43 | NUR ---
RN-NOTES PATIENT REQUESTING KLONOPIN,KLONOPIN 0.5MG P.O GIVEN PRN ORDER. WILL CONT. MONITORING FOR SAFETY AND BEHAVIOR.
--- NOTE | 2021-02-08 10:50 | NUR ---
RN-NOTES PATIENT PARTICIPATING IN THE GROUP ACTIVITIES,CALM NO ACUTE DISTRESS NOTED.
[2021-02-08] MEDS: OLANZAPINE 2.5 MG TABLET PO SCH (12:13)
--- NOTE | 2021-02-08 15:39 | NUR ---
RN-NOTES PATIENT REQUESTING KLONOPIN,KLONOPIN 0.5MG P.O GIVEN PRN ORDER. WILL CONT. MONITORING FOR SAFETY AND BEHAVIOR.
[2021-02-08 16:00] VITALS: BP 111/69
--- NOTE | 2021-02-08 16:30 | NUR ---
RN-NOTES PATIENT WATCHING TV IN THE DAY ROOM,CALM NO ACUTE DISTRESS NOTED.
[2021-02-08 20:00] VITALS: BP 102/64
--- NOTE | 2021-02-08 20:01 | NUR ---
GPS RN NOTES: TRAMADOL 50MG GIVEN PO PRN FOR LOWER BACK PAIN AT 2000. WILL CONTINUE TO MONITOR.
[2021-02-08] MEDS: MIRTAZAPINE 15 MG TABLET PO SCH (21:25)
[2021-02-08] MEDS: OLANZAPINE 10 MG TABLET PO SCH (21:25)
[2021-02-08] MEDS: TEMAZEPAM 7.5 MG CAPSULE PO PRN (23:17)
--- NOTE | 2021-02-08 23:19 | NUR ---
GPS RN NOTES: RESTORIL 7.5MG/1CAP GIVEN PO PRN FOR SLEEP AT 2317. WILL CONTINUE TO MONITOR.
--- NOTE | 2021-02-09 07:02 | NUR ---
GPS RN CLOSING NOTES: PATIENT IS CURRENTLY SLEEPING. NO BEHAVIORAL ISSUES THIS SHIFT. PATIENT HAS NO S/S OF DISTRESS. RESPIRATION EVEN AND UNLABORED WITH EQUAL RISE AND FALL OF THE CHEST, ON ROOM AIR. ALL PATIENT CARE NEEDS HAVE BEEN MET ANTICIPATED. WILL CONTINUE TO MONITOR AND ENDORSE TO AM SHIFT.
[2021-02-09 08:00] VITALS: BP 134/96
[2021-02-09] MEDS: NICOTINE PATCH (7MG) 7 MG PATCH.TD24 TD SCH (08:07)
[2021-02-09] MEDS: CHOLECALCIFEROL 1,000 UNIT TABLET (VIT D3) PO SCH (08:07)
[2021-02-09] MEDS: ZINC SULFATE 220 MG CAPSULE PO SCH (08:07)
[2021-02-09] MEDS: ASCORBIC ACID 500 MG TABLET PO SCH (08:07)
[2021-02-09] MEDS: busPIRone 5 MG TABLET PO SCH ×2 (08:08→12:09)
[2021-02-09] MEDS: TRAMADOL HCL 50 MG TABLET PO PRN ×2 (08:43→15:40)
--- NOTE | 2021-02-09 08:43 | NUR ---
RN-CO: TRAMDOL GIVEN FOR LOWER BACK PAIN 01/12.
[2021-02-09] MEDS: clonazePAM 0.5 MG TABLET PO PRN (10:26)
--- NOTE | 2021-02-09 10:27 | NUR ---
RN-CO: CLONOPINE GIVEN FOR C/O MOD ANXIETY.
--- NOTE | 2021-02-09 12:02 | NUR ---
D/C Planning: EMILY updated by Dr. Gruber that this pt. is cleared for DC today. EMILY notified Giles from [facility] who are agreeable to plan and requested latest clinicals. EMILY faxed latest clinicals to Giles at FAX: [phone].
[2021-02-09] MEDS: OLANZAPINE 2.5 MG TABLET PO SCH (12:09)
--- NOTE | 2021-02-09 12:43 | NUR ---
RN-CO: DR GAONA GAVE THE ORDER TO DISCONTINUE THE HOLD AND DISCHARGE PATIENT TODAY TO [facility]. DR HANNAH GRIFFITH MEDICALLY CLEARED PATIENT TO BE DISCHARGE TO [facility]. Addendum: 02/09/21 at 1254 by CYNDY PEDROZA RN RN-CO: DR MARINA HERNANDEZ, COVERING FOR DR LAMBERT TODAY ORDERED TO DISCONTINUE HOLD AND DISCHARGE PT.
--- NOTE | 2021-02-09 12:54 | NUR ---
RN-CO: PT IS ALERT AND ORIENTED X4, ABLE TO MAKE NEEDS KNOWN. DENIED SUICIDAL AND HOMICIDAL IDEATION, DENIED AUDITORY AND VISUAL HALLUCINATION. NO ACUTE DISTRESS NOTED. AWARE OF WHERE IS HE GOING TO BE DISCHARGE TODAY. HE REMAINS CALM AND COOPERATIVE TO CARE. I DISCUSSED TO HIM HIS DISCHARGE PAPERS WELL HIS MEDICATIONS AND HE VERBALIZED UNDERSTANDING. ALL HIS VALUABLES WILL BE GIVEN BACK TO HIM AND I WILL CALL [facility] TO GIVE REPORT TO RN. MOTHER JESSIE PRUETT MADE AWARE OF HIS DISCHARGE AND WHERE IS HE GOING.
--- NOTE | 2021-02-09 13:36 | NUR ---
RN-CO: REPORT GIVEN TO DAVIS MEDEIROS.
--- NOTE | 2021-02-09 15:46 | NUR ---
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 VALUABLES AND CLOTHES WAS GIVEN BACK TO HIM.
== END 2021-02-09 15:53 | DRG 885 ==
LOC: ER 19:11 → GPS 01-27 00:12
PROVIDERS: ADMIT Psychiatry & Neurology Psychiatry; ATTEND Nurse Practitioner Acute Care
DX: F25.9 Schizoaffective disorder, unspecified (principal); R45.851 Suicidal ideations; F29 Unspecified psychosis not due to a substance or known physiological condition; F17.200 Nicotine dependence, unspecified, uncomplicated; F31.9 Bipolar disorder, unspecified; I10 Essential (primary) hypertension; E78.5 Hyperlipidemia, unspecified; F41.9 Anxiety disorder, unspecified; Z98.890 Other specified postprocedural states; Z79.899 Other long term (current) drug therapy; Z91.14 Patient's other noncompliance with medication regimen; Z59.0 Homelessness; F15.90 Other stimulant use, unspecified, uncomplicated; J30.2 Other seasonal allergic rhinitis; F12.90 Cannabis use, unspecified, uncomplicated
CPT/HCPCS: 36415; 80048-TC; 80053-TC; 80061-TC; 80076-TC; 82962-TC; 85025-TC; 87081-TC; C9803; G0480